=== PATIENT | female | born 1965 | race Caucasian/White ===

== ENCOUNTER 2018-09-18 16:27 | Inpatient (IN) | payer MEDICAID ==
[~2018-09-18] VITALS: Ht 165.1 cm; Wt 127.3 kg
[~2018-09-18 16:27] MED LIST: AZIT-63 PO; PRED20TA PO
[2018-09-18] MEDS ORDERED: ipratropium/albuterol 3ml nebule NEB ONE (16:45)
[2018-09-18] MEDS ORDERED: methylPREDNISolone sod succ 125mg/2ml vial IV ONE (16:45)
[2018-09-18] MEDS ORDERED: FURO40TA4 PO (17:05)
[2018-09-18] MEDS ORDERED: racepinephrine 11.25mg/0.5ml nebule ONE (17:05)
[2018-09-18] MEDS ORDERED: LEVO25TA2 PO (17:05)
[2018-09-18] MEDS ORDERED: AZIT-63 PO (17:05)
[2018-09-18] MEDS ORDERED: PRED20TA PO (17:05)
[2018-09-18] MEDS ORDERED: racepinephrine 11.25mg/0.5ml nebule IH ONE (17:05)
[2018-09-18 17:10] LABS: BASOPHILS # (AUTO) 0.1 X10'3 (0-0.2); BASOPHILS % (AUTO) 0.9 % (0-1); EOSINOPHILS % (AUTO) 0 % (0-6); HEMATOCRIT 44.5 % (35.0-45.0); HEMOGLOBIN 14.8 g/dl (12.0-16.0); LYMPHOCYTES # (AUTO) 0.9 X10'3 (1.1-4.8); LYMPHOCYTES % (AUTO) 8.8 % (21-51); MEAN CORPUSCULAR HEMOGLOBIN 29.5 PG (27.0-31.0); MEAN CORPUSCULAR HGB CONC 33.1 g/dL (33.0-36.5); MEAN PLATELET VOLUME 8.8 FL (7.4-10.4); MONOCYTES # (AUTO) 0.4 X10'3 (0-0.9); MONOCYTES % (AUTO) 3.5 % (2-12); NEUTROPHILS # (AUTO) 9.1 X10'3 (1.8-7.7); NEUTROPHILS % (AUTO) 86.8 % (42-75); PLATELET COUNT 320 X10'3 (140-440); RED BLOOD COUNT 5.01 X10'6 (4.20-5.60); RED CELL DISTRIBUTION WIDTH 14.6 % (11.5-14.5); WHITE BLOOD COUNT 10.5 X10'3 (4.5-11.0)
[2018-09-18 17:18] LABS: PARTIAL THROMBOPLASTIN TIME 28 SECONDS (22-32)
[2018-09-18 17:20] LABS: ALANINE AMINOTRANSFERASE 35 U/L (12-78); ALBUMIN 3.2 G/DL (3.4-5.0); ALBUMIN/GLOBULIN RATIO 0.8 (1.1-1.5); ALKALINE PHOSPHATASE 105 IU/L (46-116); ANION GAP 8 (8-16); ASPARTATE AMINO TRANSFERASE 18 U/L (10-37); BILIRUBIN,TOTAL 0.3 MG/DL (0.1-1.0); BLOOD UREA NITROGEN 13 MG/DL (7-18); BUN/CREATININE RATIO 11.9 (6.6-38.0); CALCIUM 8.9 MG/DL (8.5-10.1); CHLORIDE 107 MMOL/L (99-107); CREATININE 1.09 MG/DL (0.40-0.90); GLUCOSE 229 MG/DL (70-104); POTASSIUM 3.9 MMOL/L (3.5-5.1); SODIUM 141 MMOL/L (135-145); TOTAL CARBON DIOXIDE 25.7 MMOL/L (24-32); eGFR 52 ML/MIN
[2018-09-18] MEDS ORDERED: fentaNYL/PF 50MCG/1 ML 2ML syringe IV ONE (17:55)
[2018-09-18] MEDS ORDERED: azithromycin/NS 500mg/250ml 250 ML IV ONE (17:55)
[2018-09-18] MEDS ORDERED: potassium Cl 40MEQ/NS 500ml 500 ML IV PRN ×2 (18:00)
[2018-09-18] MEDS ORDERED: HYDROcodone/acetaminophen 10/325mg tab PO PRN (18:00)
[2018-09-18] MEDS ORDERED: acetaminophen 325mg tablet PO PRN ×2 (18:00)
[2018-09-18] MEDS ORDERED: potassium Cl 20 mEq SR tablet PO PRN ×2 (18:00)
[2018-09-18] MEDS ORDERED: ipratropium/albuterol 3ml nebule NEB PRN (18:00)
[2018-09-18] MEDS ORDERED: mag hydrox/Alum hydrox/simeth 30ml oral suspension PO PRN (18:00)
[2018-09-18] MEDS ORDERED: ondansetron/PF 4mg/2ml inj IV PRN (18:00)
[2018-09-18] MEDS ORDERED: HYDROcodone/acetaminophen 5mg/325mg tablet PO PRN (18:00)
[2018-09-18] MEDS ORDERED: magnesium hydroxide 30ml (MOM) UD suspension PO PRN (18:00)
[2018-09-18] MEDS ORDERED: dextrose 50%-water 50ml dispensing syringe IV PRN ×2 (18:40)
[2018-09-18] MEDS ORDERED: dextrose ORAL solution 15 GM/59 ML bottle PO PRN ×2 (18:40)
[2018-09-18] MEDS ORDERED: glucagon, human recombinant 1mg kit SUBCUT PRN (18:40)
[2018-09-18] MEDS ORDERED: insulin Lispro (HumaLOG) vial - multi-dose SQ SCH (18:40)
[2018-09-18] MEDS ORDERED: MESSAGE TO PHARMACY PO ONE (18:40)
[2018-09-18 20:00] VITALS: BP 117/78
[2018-09-18] MEDS ORDERED: insulin glargine (Lantus) pen - multi-dose SQ SCH (21:00)
--- NOTE | 2018-09-18 21:30 | NUR ---
PT JUST EXPRESSED TO ME SHE WANTS TO GO HOME NOW, AFTER JUST BEING ADMITTED. I DISCUSSED THIS WITH HER EXPLAINING THAT SHE CAN'T COME TO THE ER, BE ADMITTED AND THEN DECIDE SHE DOESN'T WANT TO STAY. Addendum: 09/18/18 at 2222 by Neville Gray RN Amended: Links added.
--- NOTE | 2018-09-18 22:21 | NUR ---
PT DISCHARGED WITH ALL HER BELONGINGS VIA W/C TO HER TRUCK. SHE STATED TO ME SHE HAS QXYGEN AT HOME. Addendum: 09/18/18 at 2222 by Neville Gray RN Amended: Links added.
[2018-09-19] MEDS ORDERED: methylPREDNISolone sod succ 125mg/2ml vial IV SCH
[2018-09-19] MEDS ORDERED: azithromycin/NS 500mg/250ml 250 ML IV SCH (08:00)
[2018-09-19] MEDS ORDERED: enoxaparin 40mg/0.4ml syringe SUBCUT SCH (08:00)
[2018-09-19] MEDS ORDERED: K and/or MAG REPLACEMENT MC SCH (08:00)
== END 2018-09-18 23:35 | disposition left against medical advice (07) | DRG 140 ==
LOC: ER 16:27 → ED HOLD 17:56 → EDBEDREQSVC 18:12 → EDBEDREQ 19:42 → SUR 3N 19:58
PROVIDERS: ADMIT Internal Medicine; ATTEND Internal Medicine
DX: J44.0 Chronic obstructive pulmonary disease with (acute) lower respiratory infection (principal); E11.40 Type 2 diabetes mellitus with diabetic neuropathy, unspecified; J20.9 Acute bronchitis, unspecified; J44.1 Chronic obstructive pulmonary disease with (acute) exacerbation; E66.01 Morbid (severe) obesity due to excess calories; F12.90 Cannabis use, unspecified, uncomplicated; F43.10 Post-traumatic stress disorder, unspecified; Z53.21 Procedure and treatment not carried out due to patient leaving prior to being seen by health care provider; G47.30 Sleep apnea, unspecified; Z88.0 Allergy status to penicillin; Z88.8 Allergy status to other drugs, medicaments and biological substances; Z68.42 Body mass index [BMI] 45.0-49.9, adult; Z87.891 Personal history of nicotine dependence; Z90.710 Acquired absence of both cervix and uterus; Z98.51 Tubal ligation status; Z79.899 Other long term (current) drug therapy; Z79.890 Hormone replacement therapy
CPT/HCPCS: 36415; 71045; 80053; 83036; 83605; 83880; 84484; 85025; 85610; 85730; 87040; 94640; 94760; 96374; 99285; G0378; J0456; J1815; J2930; J3010

== ENCOUNTER 2018-09-25 15:00 | Inpatient (IN) | payer MEDICAID ==
[~2018-09-25] VITALS: Ht 165.1 cm; Wt 116.5 kg
[~2018-09-25 15:00] MED LIST changes: +FURO40TA4 PO; +LEVO25TA2 PO
[2018-09-25] MEDS ORDERED: hydrOXYzine 25 MG tablet PO PRN (16:15)
[2018-09-25] MEDS ORDERED: loperamide 2mg capsule PO PRN (16:15)
[2018-09-25] MEDS ORDERED: mag hydrox/Alum hydrox/simeth 30ml oral suspension PO PRN (16:15)
[2018-09-25] MEDS ORDERED: acetaminophen 325mg tablet PO PRN (16:15)
[2018-09-25] MEDS ORDERED: tuberculin, purif. prot. deriv. 5 units/0.1ml ID ONE (16:15)
[2018-09-25] MEDS ORDERED: magnesium hydroxide 30ml (MOM) UD suspension PO PRN (16:15)
[2018-09-25] MEDS ORDERED: ALBU18HF2 INH (16:30)
[2018-09-25] MEDS ORDERED: POTA20PA40 PO (16:30)
[2018-09-25] MEDS ORDERED: TIOT18CA3 INH (16:30)
[2018-09-25] MEDS ORDERED: CLON-528 PO (16:30)
[2018-09-25] MEDS ORDERED: METF-436 PO (16:30)
--- NOTE | 2018-09-25 16:55 | NUR ---
Admission note: Pt accepted from [facility] by Raymon Handy for Dr Goldman for depression. Pt arrives at 1545 on the unit [facility]. Pt has 5150 written for DTS. Pt reported having suicidal thoughts. Pt states "I wouldn't have any questions about taking myself out. I probably wouldn't tell anybody, I would just do it." Pt reports hearing voices, having memory gaps and not having a purpose in life. Pt unable to participate in development of a viable safety plan. Pt oriented to the unit. Pts belongings inventoried. Pt showered and completed admission process.
[2018-09-25] MEDS ORDERED: pneumococcal 23-VAL P-sac vacc 25 mcg/0.5ml vial IMVAC ONE (17:00)
[2018-09-25] MEDS ORDERED: albuterol 2.5 MG/3 ML nebule NEB PRN (19:25)
[2018-09-25] MEDS: ipratropium 0.5 MG/2.5ML nebule IH SCH (19:57)
[2018-09-25 20:00] VITALS: BP 152/79
[2018-09-25] MEDS: furosemide 40mg tablet PO SCH (21:30)
[2018-09-25] MEDS: clonazePAM 0.5mg tablet PO PRN (21:30)
[2018-09-25] MEDS: potassium Cl 20 mEq SR tablet PO SCH (21:30)
[2018-09-25] MEDS: metFORMIN 500mg tablet PO SCH (21:31)
[2018-09-26] MEDS: ipratropium 0.5 MG/2.5ML nebule IH SCH ×4 (02:16→23:14)
--- NOTE | 2018-09-26 04:03 | NUR ---
Nursing Progress Note: Legal hold: 5150 Client on involuntary status for DTS. Report received from nurse with use of TIMOTEO Montoya RN. Why are they here: The patient self-presented to the ER with c/o SOB. During this time, she also endorsed suicidal and homicidal thoughts. "I would not have any problem taking myself out. I would not talk about it, I would just do it like my brother did." Utox was positive for meth and THC. She reports hearing voices in her head for her "entire life." She is homeless and sttaes that she "caught the love of my life in bed with someone else." Assessment What has happened this shift: The patient was laying in bed sleeping. She easily wakened for 1:1. She states that she recently came from [email or web address]. She reports that she became suicidal after becoming homeless. She feels helpless, hopeless, and worthless. "I can't think, can't focus." The patient states that she has no support from anybody but her daughter, "but she has her own problems." The patient c/o cough and order received for cough syrup, but she was asleep, and never woke for it. She has slept all night. S/I, H/I: Passive SI. A/VH: Denies Sleep: Has slept all night ADL's:Independent Group attendance: New admit Were meds taken: Yes Any med S/E none noted or reported Mental Status Exam Appearance: Disheveled, hair cut off short. Eye contact: Poor Behavior: Laid in bed sleeping all night. Speech: Clear, normal rate/rhythm. Mood: Depressed Affect: constricted Thought process: Linear Thought Content: Not known yet. Cognition: A/O x4 Insight: Poor Judgment: Poor Interventions PRN's used: Breathing tx by respiratory. Therapeutic interventions: Q15 min safety checks, 1:1 assessment, Active listening. Restraints/seclusion/emergency medication: none Justification of Continued Inpatient Treatment: The patient is home, suicidal, and has no ability to plan for safety, housing, or food.
[2018-09-26 07:25] VITALS: BP 138/89
[2018-09-26] MEDS: metFORMIN 500mg tablet PO SCH ×2 (07:44→20:28)
[2018-09-26] MEDS: levoTHYROXINE 25mcg tablet PO SCH (07:44)
[2018-09-26] MEDS: furosemide 40mg tablet PO SCH ×2 (07:45→20:30)
[2018-09-26] MEDS: potassium Cl 20 mEq SR tablet PO SCH ×2 (07:45→20:27)
[2018-09-26 08:05] LABS: CHOL/HDL RATIO 3.9 (0.00-4.99); CHOLESTEROL 208 MG/DL (0-200); HDL CHOLESTEROL 54 MG/DL (35-60); LDL CHOLESTEROL 130 MG/DL (50-100); TRIGLYCERIDES 143 MG/DL (20-135)
[2018-09-26 08:06] LABS: HEMOGLOBIN A1C 6.9 % (4.5-6.2)
[2018-09-26] MEDS: guaiFENesin/DM 10ml UD oral syrup PO PRN (10:54)
--- NOTE | 2018-09-26 14:50 | NUR ---
Nursing Progress Note: Legal hold: 5150 Client on involuntary status for DTS. Report received from nurse with use of SBAR: Tiffanie BANKS. Why are they here: The patient self-presented to the ER with c/o SOB. During this time, she also endorsed suicidal and homicidal thoughts. "I would not have any problem taking myself out. I would not talk about it, I would just do it like my brother did." Utox was positive for meth and THC. She reports hearing voices in her head for her "entire life." She is homeless and sttaes that she "caught the love of my life in bed with someone else." Assessment What has happened this shift: Patient sleeping at shift change. Pt awakened easily and and took her medications and BGM. Patient exhausted and with prompting got up for breakfast, has been depressed and sleeping. Reports that she is having A/H that are telling her that she is worthless, and tell her to kill herself. Patient states no plan. Patients S/O was caught cheating on her after 13 years. Pt. states that she feels worthless, hopeless, helpless. Lungs with bilateral wheezes. Pt. has cough and was given cough medicine. S/I, H/I: Pt. reports that she wants to . A/VH: A/H all the time, life long. Sleep: 9.25 hrs. ADL's:Independent Group attendance: None. Were meds taken: Yes Any med S/E none noted or reported Mental Status Exam Appearance: Obese woman with short hair wearing green hospital scrubs. Eye contact: Poor Behavior: Exhaustion, sleeping. Speech: Soft, clear, normal rate/rhythm. Mood: Depressed Affect: constricted Thought process: Linear Thought Content: Wanting to . Family disruption. Cognition: A/O x4 Insight: Poor Judgment: Poor Interventions PRN's used: Breathing tx by respiratory, guanfacine cough syrup. Therapeutic interventions: 1:1 to assess severity of symptoms, therapeutic commication and established rapport, Medication education, administration and monitoring. BGM. Q15 min safety checks. Restraints/seclusion/emergency medication: none Justification of Continued Inpatient Treatment: Patient needs interruption of crisis, medication stabilization. Pt. is high risk for rehospitalization if released before stable.
[2018-09-26 20:10] VITALS: BP 124/71
[2018-09-26] MEDS: acetaminophen 325mg tablet PO PRN (20:29)
[2018-09-26] MEDS: clonazePAM 0.5mg tablet PO PRN (20:30)
--- NOTE | 2018-09-26 23:30 | NUR ---
Nursing Progress Note: Legal hold: 5150 Client on involuntary status for DTS. Report received from nurse with use of TIMOTEO Montoya RN. Why are they here: The patient self-presented to the ER with c/o SOB. During this time, she also endorsed suicidal and homicidal thoughts. "I would not have any problem taking myself out. I would not talk about it, I would just do it like my brother did." Utox was positive for meth and THC. She reports hearing voices in her head for her "entire life." She is homeless and states that she "caught the love of my life in bed with someone else." Assessment What has happened this shift: At shift change the patient was seen in the group room eating dinner. She went to her room after and lay down. her room was later entered for 1:1 as she ate a snack. the patient reports that she is very depressed and is hearing voices tell her, "you're no good, why don't you just kill yourself." She gets tearful as she says this. The patient reports that she talked to her friend today, "she is my only emotional support person. At least someone knows where I am now." The patient continues to report extreme fatigue, and says that due to her sleep apnea she does not sleep well or feel rested when she wakes. She says that she needs her CPAP from home. The patient's lungs continue to be wheezy, but she is accepting breathing tx. She has been sleeping since HS med pass. S/I, H/I: Passive SI. A/VH: Denies Sleep: Has been sleeping since HS med pass. ADL's:Independent Group attendance: No groups tonight. Were meds taken: Yes Any med S/E none noted or reported Mental Status Exam Appearance: Disheveled, fatigued, obese, hair cut off short. Eye contact: Poor Behavior: Laid in bed sleeping all night. Speech: Clear, normal rate/rhythm. Mood: Depressed, labile. Affect: constricted, depressed, labile Thought process: Linear Thought Content: Preoccupied with voices telling her to kill herself. Cognition: A/O x4 Insight: Poor Judgment: Poor Interventions PRN's used: Breathing tx by respiratory, Clonazepam for anxiety. Therapeutic interventions: Q15 min safety checks, 1:1 assessment, Active listening, positive feedback, provide safe environment. Restraints/seclusion/emergency medication: none Justification of Continued Inpatient Treatment: The patient is home, suicidal, and has no ability to plan for safety, housing, or food.
[2018-09-27] MEDS: ipratropium 0.5 MG/2.5ML nebule IH SCH ×3 (02:33→15:00)
[2018-09-27] MEDS: metFORMIN 500mg tablet PO SCH ×2 (07:30→20:00)
[2018-09-27] MEDS: potassium Cl 20 mEq SR tablet PO SCH ×2 (07:30→20:00)
[2018-09-27] MEDS: levoTHYROXINE 25mcg tablet PO SCH (07:31)
[2018-09-27] MEDS: furosemide 40mg tablet PO SCH ×2 (07:31→20:00)
[2018-09-27] MEDS ORDERED: duloxetine 30mg CAPSULE.DR PO SCH (08:00)
[2018-09-27 08:14] VITALS: BP 117/93
[2018-09-27] MEDS: nystatin 500,000 unit/5ML UD oral suspension PO SCH ×2 (08:59→21:30)
[2018-09-27] MEDS ORDERED: ondansetron/PF 4mg/2ml inj IM ONE ×2 (11:45→23:10)
--- NOTE | 2018-09-27 14:24 | NUR ---
Nursing Progress Note: Legal hold: 5150 Client on involuntary status for DTS. Report received from nurse with use of SBAR: Opal BANKS. Why are they here: The patient self-presented to the ER with c/o SOB. During this time, she also endorsed suicidal and homicidal thoughts. "I would not have any problem taking myself out. I would not talk about it, I would just do it like my brother did." Utox was positive for meth and THC. She reports hearing voices in her head for her "entire life." She is homeless and sttaes that she "caught the love of my life in bed with someone else." Assessment What has happened this shift: Patient lying in bed at the start of shift. At medication pass patient is crying softly. Patient refused breakfast. At 11:40 patient started complaining of n/v. Patient did have dry heaves for a long time, was groaning and rocking back and forth. Zofran 4 mg given IM. Patient started feeling better almost instantly, patient ate saltine and was able to go back to bed. Educated patient to eat breakfast, even if it is only a small portion, patient agreed. Patient's accuchecks were DC'd, stable blood glucose. S/I, H/I: Pt is suicidal without plan. A/VH: A/H all the time, life long. Sleep: 10 hrs. NOC. Slept most of the day. ADL's:Independent Group attendance: None. Were meds taken: Compliant. Any med S/E: none noted or reported Mental Status Exam Appearance: Freshly showered woman with short hair wearing green hospital scrubs. Eye contact: Poor Behavior: Exhaustion, sleeping, crying. Speech: Soft, clear, normal rate/rhythm. Mood: Depressed, distraught. Affect: Constricted. Thought process: Linear Thought Content: Wanting to . Family disruption. Cognition: A/O x4 Insight: Poor Judgment: Poor Interventions PRN's used: Breathing tx by respiratory, Zofran Therapeutic interventions: 1:1 to assess severity of symptoms, therapeutic communication and to maintain rapport, Medication education, administration and monitoring. BGM. Q15 min safety checks. Restraints/seclusion/emergency medication: none Justification of Continued Inpatient Treatment: Patient needs interruption of crisis, medication stabilization. Pt. is high risk for rehospitalization if released before stability has been achieved.
[2018-09-27] MEDS: predniSONE 20 mg tablet PO SCH (20:15)
[2018-09-27] MEDS ORDERED: dextrose ORAL solution 15 GM/59 ML bottle PO PRN ×2 (20:25)
[2018-09-27] MEDS ORDERED: MESSAGE TO PHARMACY PO ONE (20:25)
[2018-09-27] MEDS ORDERED: dextrose 50%-water 50ml dispensing syringe IV PRN ×2 (20:25)
[2018-09-27] MEDS ORDERED: glucagon, human recombinant 1mg kit SUBCUT PRN (20:25)
[2018-09-27] MEDS: proCHLORperazine 10mg tablet PO PRN (20:34)
[2018-09-27] MEDS: proCHLORperazine 25mg suppository RC PRN (20:43)
[2018-09-27 20:45] VITALS: BP 119/77
[2018-09-27] MEDS: insulin glargine (Lantus) pen - multi-dose SQ SCH (21:00)
[2018-09-27 21:30] LABS: ABG BASE EXCESS 4.1 mmol/L (-2.0-3.0); ABG HCO3 27.6 mmol/L (22.0-26.0); ABG OXYGEN SATURATION 95.3 % (95-98); ABG PCO2 (T) 37.4 mmHg (32.0-45.0); ABG PH (T) 7.485 (7.350-7.450); FCOHb 0.2 % (0.5-1.5); FMetHb 0.2 % (0.3-1.12); FO2Hb 94.9 % (94-100); PATIENT TEMPERATURE 36.7; TOTAL HEMOGLOBIN 16.9 G/dl (12.0-16.0)
[2018-09-27] MEDS ORDERED: ipratropium/albuterol 3ml nebule ONE (21:35)
[2018-09-27] MEDS: ipratropium/albuterol 3ml nebule NEB SCH ×2 (21:36→22:26)
[2018-09-27] MEDS: famotidine 20mg tablet PO SCH (21:56)
[2018-09-27 23:43] LABS: BASOPHILS # (AUTO) 0.1 X10'3 (0-0.2); BASOPHILS % (AUTO) 0.6 % (0-1); EOSINOPHILS # (AUTO) 0.2 X10'3 (0-0.9); HEMATOCRIT 49.7 % (35.0-45.0); HEMOGLOBIN 16.8 g/dl (12.0-16.0); LYMPHOCYTES # (AUTO) 3.6 X10'3 (1.1-4.8); LYMPHOCYTES % (AUTO) 21.5 % (21-51); MEAN CORPUSCULAR HEMOGLOBIN 30.1 PG (27.0-31.0); MEAN CORPUSCULAR HGB CONC 33.8 g/dL (33.0-36.5); MEAN CORPUSCULAR VOLUME 89.2 FL (78-98); MONOCYTES # (AUTO) 1.3 X10'3 (0-0.9); MONOCYTES % (AUTO) 7.4 % (2-12); NEUTROPHILS # (AUTO) 11.8 X10'3 (1.8-7.7); NEUTROPHILS % (AUTO) 69.5 % (42-75); PLATELET COUNT 347 X10'3 (140-440); RED BLOOD COUNT 5.58 X10'6 (4.20-5.60); RED CELL DISTRIBUTION WIDTH 15.4 % (11.5-14.5)
[2018-09-27 23:54] LABS: ALANINE AMINOTRANSFERASE 50 U/L (12-78); ALBUMIN 3.5 G/DL (3.4-5.0); ALBUMIN/GLOBULIN RATIO 0.9 (1.1-1.5); ALKALINE PHOSPHATASE 110 IU/L (46-116); ANION GAP 9 (8-16); ASPARTATE AMINO TRANSFERASE 19 U/L (10-37); BILIRUBIN,TOTAL 0.5 MG/DL (0.1-1.0); BLOOD UREA NITROGEN 37 MG/DL (7-18); BUN/CREATININE RATIO 17.9 (6.6-38.0); CALCIUM 9.5 MG/DL (8.5-10.1); CHLORIDE 96 MMOL/L (99-107); CREATININE 2.07 MG/DL (0.40-0.90); GLUCOSE 163 MG/DL (70-104); POTASSIUM 4.3 MMOL/L (3.5-5.1); SODIUM 130 MMOL/L (135-145); TOTAL CARBON DIOXIDE 25.4 MMOL/L (24-32); TOTAL PROTEIN 7.3 G/DL (6.4-8.2); eGFR 25 ML/MIN
[2018-09-28] MEDS: normal saline 1000ml 1,000 ML IV SCH ×2 (00:45→04:15)
[2018-09-28] MEDS ORDERED: ondansetron/PF 4mg/2ml inj IV ONE (01:35)
[2018-09-28] MEDS ORDERED: metoclopramide 5 mg/ml inj IV ONE (04:10)
--- NOTE | 2018-09-28 05:07 | NUR ---
Nursing Progress Note: Legal hold: 5150 Client on involuntary status for DTS. Report received from nurse with use of TIMOTEO Montoya RN. Why are they here: The patient self-presented to the ER with c/o SOB. During this time, she also endorsed suicidal and homicidal thoughts. "I would not have any problem taking myself out. I would not talk about it, I would just do it like my brother did." Utox was positive for meth and THC. She reports hearing voices in her head for her "entire life." She is homeless and states that she "caught the love of my life in bed with someone else." Assessment What has happened this shift: At shift change pt was actively vomiting. Dr. Connolly was called, he came to see pt. scheduled DuoNeb-every 4 hours while awake, prednisone 60 mg daily budesonide nebs twice a day.See 's note for more detail. Prednisone along with other HS scheduled meds were not administered due to pt continually vomiting. Compazine 10mg tab given at 2033, pt vomited this up within 1 minute of swallowing. Pt then given a compazine 10 mg suppository at 2042 which pt reported provided a short period of relief. soon after pt began vomiting again, crying, and could not hold her bladder. Zofran 4mg IM given at 2324. Pt still continued to vomit, Dr. Connolyl was called again, he ordered 1,000 ML NS @250ML/HR which was initiated. IV placed in R hand 20 gauge. ABGs drawn, labs drawn. Pt still continued to vomit/dry heave. Pt given IV zofran @0212. Pt still continued to dry heave/vomit/cry. IV reglan given @0416. KUB ordered. Pt dry heaved a few times after receiving IV reglan. Cold cloths given to pt to place on her forehead, head of bed elevated. HS blood sugar : 150 blood sugar rechecked at 0353 : 183 S/I, H/I: Pt could not focus on questions, no suicidal/homicidal statements made A/VH: Pt could not focus on questions, no internal stimuli observed Sleep: See sleep assessment notation ADL's: Independent Group attendance: No groups tonight. Were meds taken: Pt could not take scheduled HS medications due to active emesis Any med S/E : continual emesis/ dry heaving Mental Status Exam Appearance: pt showered x3 this shift upon her request after wetting the bed. Eye contact: Poor Behavior: laid in bed or sat up w/ active fits of emesis/ dry heaving Speech: Clear, distressed Mood:distressed Affect: hopeless Thought process: Linear Thought Content: "please make it stop" "I just want to stop throwing up" "I am so sick" Cognition: A/O x4 Insight: Poor Judgment: Poor Interventions PRN's used: see eMAR Therapeutic interventions: Q15 min safety checks, 1:1 assessment, IV therapy, Active listening, positive feedback, provide safe environment. Restraints/seclusion/emergency medication: none Justification of Continued Inpatient Treatment: The patient is home, suicidal, and has no ability to plan for safety, housing, or food.
[2018-09-28] MEDS: ipratropium/albuterol 3ml nebule NEB SCH ×5 (07:00→23:00)
[2018-09-28] MEDS: levoTHYROXINE 25mcg tablet PO SCH (07:00)
[2018-09-28] MEDS ORDERED: LORazepam 2 mg/ml vial IM ONE (07:50)
[2018-09-28 08:00] VITALS: BP 140/77
[2018-09-28] MEDS ORDERED: normal saline 1000ml 1,000 ML IV ONE (08:00)
[2018-09-28] MEDS: predniSONE 20 mg tablet PO SCH (08:00)
[2018-09-28] MEDS: metFORMIN 500mg tablet PO SCH ×2 (08:00→19:53)
[2018-09-28] MEDS: furosemide 40mg tablet PO SCH ×2 (08:00→19:53)
[2018-09-28] MEDS: nystatin 500,000 unit/5ML UD oral suspension PO SCH ×2 (08:00→19:58)
[2018-09-28] MEDS: famotidine 20mg tablet PO SCH ×2 (08:00→19:54)
[2018-09-28] MEDS: duloxetine 30mg CAPSULE.DR PO SCH (08:00)
[2018-09-28] MEDS: potassium Cl 20 mEq SR tablet PO SCH ×2 (08:00→19:53)
[2018-09-28] MEDS: budesonide 0.5mg/2ml UD nebule IH SCH ×2 (08:00→19:58)
[2018-09-28 08:10] LABS: BASOPHILS # (AUTO) 0.1 X10'3 (0-0.2); BASOPHILS % (AUTO) 0.7 % (0-1); EOSINOPHILS # (AUTO) 0.1 X10'3 (0-0.9); EOSINOPHILS % (AUTO) 0.3 % (0-6); HEMATOCRIT 46.9 % (35.0-45.0); HEMOGLOBIN 15.5 g/dl (12.0-16.0); LYMPHOCYTES # (AUTO) 1.7 X10'3 (1.1-4.8); LYMPHOCYTES % (AUTO) 10.8 % (21-51); MEAN CORPUSCULAR HEMOGLOBIN 29.5 PG (27.0-31.0); MEAN CORPUSCULAR HGB CONC 33.1 g/dL (33.0-36.5); MEAN CORPUSCULAR VOLUME 88.9 FL (78-98); MEAN PLATELET VOLUME 9.4 FL (7.4-10.4); MONOCYTES # (AUTO) 0.6 X10'3 (0-0.9); MONOCYTES % (AUTO) 4.1 % (2-12); NEUTROPHILS % (AUTO) 84.1 % (42-75); PLATELET COUNT 304 X10'3 (140-440); RED BLOOD COUNT 5.27 X10'6 (4.20-5.60); WHITE BLOOD COUNT 15.5 X10'3 (4.5-11.0)
[2018-09-28 08:18] LABS: ALANINE AMINOTRANSFERASE 46 U/L (12-78); ALBUMIN 3.4 G/DL (3.4-5.0); ALBUMIN/GLOBULIN RATIO 0.9 (1.1-1.5); ALKALINE PHOSPHATASE 104 IU/L (46-116); ANION GAP 6 (8-16); ASPARTATE AMINO TRANSFERASE 16 U/L (10-37); BILIRUBIN,TOTAL 0.6 MG/DL (0.1-1.0); BLOOD UREA NITROGEN 32 MG/DL (7-18); BUN/CREATININE RATIO 18.6 (6.6-38.0); CALCIUM 9.2 MG/DL (8.5-10.1); CHLORIDE 98 MMOL/L (99-107); CREATININE 1.72 MG/DL (0.40-0.90); GLUCOSE 183 MG/DL (70-104); POTASSIUM 4.3 MMOL/L (3.5-5.1); SODIUM 132 MMOL/L (135-145); TOTAL CARBON DIOXIDE 27.9 MMOL/L (24-32); eGFR 31 ML/MIN
--- NOTE | 2018-09-28 18:08 | NUR ---
Nursing Progress Note: Legal hold: 5150 Client on involuntary status for DTS. Report received from nurse with use of SBAR: Opal BANKS. Why are they here: The patient self-presented to the ER with c/o SOB. During this time, she also endorsed suicidal and homicidal thoughts. "I would not have any problem taking myself out. I would not talk about it, I would just do it like my brother did." Utox was positive for meth and THC. She reports hearing voices in her head for her "entire life." She is homeless and sttaes that she "caught the love of my life in bed with someone else." Assessment What has happened this shift: Received Pt in bed with c/o nausea and vomiting. Pt vomited before AM med pass and continued to c/o nausea. AM meds not given due to nausea and vomitting. Dr Michael held cymbalta. Hospitalist ordered 1000 NS at 100/hr. Bag hung and continues to run. Pt requested and did shower in mid morning and returned to bed. IM ativan, 1mg given per Dr Michael. Received AM breathing Tx before lunch. After some turning and tossing, was able to sleep. AM BS was 186. BS at 1800 was 142. Awoke for dinner and states she feels much better with no nausea. S/I, H/I: Pt is suicidal without plan. A/VH: A/H all the time, life long. Sleep: 4 hrs in afternoon ADL's:Independent Group attendance: None. Were meds taken: No oral meds due to nausea and vomiting Any med S/E: none noted or reported Mental Status Exam Appearance: Freshly showered woman with short hair wearing green hospital scrubs. Eye contact: Poor Behavior: Exhaustion, sleeping, crying. Speech: Soft, clear, normal rate/rhythm. Mood: Depressed, distraught. Affect: Constricted. Thought process: Linear Thought Content: Wanting to . Family disruption. Cognition: A/O x4 Insight: Poor Judgment: Poor Interventions PRN's used: IM ativan Therapeutic interventions: 1:1 to assess severity of symptoms, therapeutic communication and to maintain rapport, Medication education, administration and monitoring. BGM. Q15 min safety checks. Restraints/seclusion/emergency medication: none Justification of Continued Inpatient Treatment: Patient needs interruption of crisis, medication stabilization. Pt. is high risk for rehospitalization if released before stability has been achieved.
[2018-09-28] MEDS: LORazepam 1 MG tablet PO PRN (19:52)
[2018-09-28] MEDS: guaiFENesin/DM 10ml UD oral syrup PO PRN (19:52)
[2018-09-28] MEDS: traZODone 50mg tablet PO PRN (19:53)
[2018-09-28] MEDS: acetaminophen 325mg tablet PO PRN (19:53)
[2018-09-28 20:00] VITALS: BP 132/82
[2018-09-28] MEDS: insulin glargine (Lantus) pen - multi-dose SQ SCH (21:00)
--- NOTE | 2018-09-28 22:19 | NUR ---
Nursing Progress Note Legal hold:5250 Client on voluntary/involuntary status for Gravely disabled and being a danger to herself Report received from nurse with use of TIMOTEO Ba RN Why are they here: The patient was admitted from [facility] ER after she went there complaining of suicidal thoughts to cut herself and prior to going to the ER she was contemplating jumping [place] [place] but she went to the ER instead because she has 3 grandchildren. Assessment What has happened this shift: The patient was in her bed a majority of the evening 2nd to feeling tired and ill. She initially was very sleepy. She had no nausea or vomiting this shift. She reported her mood was "a lot better" Her interactions with staff were friendly and she was appreciative of care. She stated that the cough she had was also improved but she continued to have occasional productive cough and prn cough syrup was given. She also reported her energy level was very low. The patient stated that she is having derogatory and command hallucinations telling her to kill herself. She also continues to have suicidal thoughts and when asked if she was having them any less frequently than on admit she replied, "It's hard to tell because I've been concentrating on getting well" Anxiety was moderate and she did request prn Ativan. The patient accidently pulled out her IV S/I, H/I: Suicidal thoughts continue A/VH: AH telling her to kill herself and derogatory statements. Sleep: ADL's: Independent Group attendance: no PM group Were meds taken: The patient is medication compliant Any med S/E The patient denies medications side effects Mental Status Exam Appearance: Short cropped hair. She appears older than her stated age. Dressed in day [facility] scrub gown Eye contact: Good Behavior: Pleasant cooperative Speech: Normal rate and volume Mood: Depressed but reports improved tonight. Affect: WNL Thought process:Logical linear Thought Content: difficult to fully assess 2nd to still feeling ill Cognition: alert and oriented Insight: Impaired Judgment: Impaired Interventions PRN's used: Ativan, Trazodone, Tylenol, Cough Syrup Therapeutic interventions: One to one with the patient to assess for severity of depressive symptoms and self harm risk. Reviewed plan of care for the evening. HS and prn medications were reviewed with her. Assessed for severity of disordered thought processes. Restraints/seclusion/emergency medication: NO Justification of Continued Inpatient Treatment: The patient continues to endorse suicidal thoughts and she also reports command auditory hallucinations telling her to kill herself.
[2018-09-29] MEDS: ipratropium/albuterol 3ml nebule NEB SCH ×4 (07:00→20:02)
[2018-09-29] MEDS: levoTHYROXINE 25mcg tablet PO SCH ×2 (07:30→13:49)
[2018-09-29] MEDS: proCHLORperazine 10mg tablet PO PRN (07:30)
[2018-09-29 07:57] VITALS: BP 145/92
[2018-09-29] MEDS: budesonide 0.5mg/2ml UD nebule IH SCH ×2 (08:00→20:00)
[2018-09-29] MEDS: predniSONE 20 mg tablet PO SCH (08:30)
[2018-09-29] MEDS: potassium Cl 20 mEq SR tablet PO SCH ×3 (08:30→20:11)
[2018-09-29] MEDS: furosemide 40mg tablet PO SCH ×3 (08:30→21:09)
[2018-09-29] MEDS: duloxetine 30mg CAPSULE.DR PO SCH (08:30)
[2018-09-29] MEDS: famotidine 20mg tablet PO SCH ×3 (08:30→20:10)
[2018-09-29] MEDS: metFORMIN 500mg tablet PO SCH ×3 (08:30→20:10)
[2018-09-29] MEDS: nystatin 500,000 unit/5ML UD oral suspension PO SCH ×3 (08:30→20:10)
--- NOTE | 2018-09-29 09:20 | NUR ---
HYPERGLYCEMIC PROTOCOL Patients last 2 BS = 09/28 at 2030 184, 09/29 at 0710 168, initiate hyperglycemic protocol, however, patient is nauseated and unable to eat, nausea and vomiting all of yesterday. RN did not administer insulin.
[2018-09-29 13:10] VITALS: BP 161/102
[2018-09-29] MEDS: acetaminophen 325mg tablet PO PRN (13:25)
[2018-09-29 15:00] VITALS: BP 170/93
[2018-09-29] MEDS: LORazepam 1 MG tablet PO PRN ×2 (18:33→20:22)
--- NOTE | 2018-09-29 18:37 | NUR ---
Nursing Progress Note: Legal hold: 5150 Client on involuntary status for DTS. Report received from nurse with use of SBAR: Opal BANKS. Why are they here: The patient self-presented to the ER with c/o SOB. During this time, she also endorsed suicidal and homicidal thoughts. "I would not have any problem taking myself out. I would not talk about it, I would just do it like my brother did." Utox was positive for meth and THC. She reports hearing voices in her head for her "entire life." She is homeless and sttaes that she "caught the love of my life in bed with someone else." Assessment What has happened this shift: Patient is met in her room resting. She wakens and states that she is very nauseated. Seh takes a shower and then lays back down. PRN clompazine is administered as well as MOM for constipation and prune juice. Patient does not eat breakfast. Morning medicaitons not administered due to nausea. Patient c/o pain in her shoulder, Tylenol administered. She states that she still has not had a BM, prune juice provided. At lunch patient takes all AM meds except cymbalta and prednisone. She requests Ativan for anxiety, administered at 1300. She eats about half of her food to include broth and power pudding. After she lays down to rest. Patients last 2 BS = 09/28 at 2030 184, 09/29 at 0710 168, initiate hyperglycemic protocol, however, patient is nauseated and unable to eat, nausea and vomiting all of yesterday. RN did not administer insulin. 1257 BS = 202, 1746 BS = 144. S/I, H/I: denies A/VH: none reported Sleep: slept on and off throughout the day ADL's:Independent Group attendance: None. Were meds taken: yes Any med S/E: none noted or reported Mental Status Exam Appearance: appropriate Eye contact: direct Behavior: Exhaustion, sleeping, crying. Speech: Soft, clear, normal rate/rhythm. Mood: Depressed, not feeling well physically and mentally Affect: Constricted. Thought process: Linear Thought Content: focused on feeling better Cognition: A/O x4 Insight: Poor Judgment: Poor Interventions PRN's used: MOM, clompazine Therapeutic interventions: 1:1 to assess severity of symptoms, therapeutic communication to maintain rapport with positive feedback provided, medication education, BGM, and Q15 min safety checks. Restraints/seclusion/emergency medication: none Justification of Continued Inpatient Treatment: Continued therapeutic support and medicaiton management needed to provide stabalization, prevent decompensation, and decrease risk to patient and readmittance.She continues to be high risk for discharge at this point because of continuing suicide ideations and profound depressive and anxiety symptoms
[2018-09-29 20:00] VITALS: BP 157/88
[2018-09-29] MEDS: insulin glargine (Lantus) pen - multi-dose SQ SCH (20:15)
[2018-09-29] MEDS: traZODone 50mg tablet PO PRN (20:25)
--- NOTE | 2018-09-29 20:30 | NUR ---
Ativan administered early. CRN notified
--- NOTE | 2018-09-30 03:54 | NUR ---
Nursing Progress Note: Legal hold: 550 Client on involuntary status for DTS. Report received from DELGADO Park with use of SBAR Why are they here: The patient self-presented to the ER with c/o SOB. During this time, she also endorsed suicidal and homicidal thoughts. "I would not have any problem taking myself out. I would not talk about it, I would just do it like my brother did." Her tox screen was positive for meth and THC. She reports hearing voices in her head for her "entire life." She is homeless and states that she "caught the love of my life in bed with someone else." Assessment What has happened this shift: Patient was sleeping in bed at shift change. Received in report that pt was nauseous most of the day wasnt feeling well. Let patient sleep until it was time for HS meds and blood glucose check. Pt reported that her nausea had subsided and she did have a small, hard BM. Hypo bowel sounds in x4 were auscultated and no pain reported when palpating abdomen. Pt was extremely anxious, so Ativan was administered. Pts BS was 166. Pt requested something to eat and had some juice, including 2 boxes of prune juice,some cheese and crackers. Pt was able to keep this down without vomiting. Administered all medications with no SE noted. KUB results noted large amount of stool in colon. If clinical concern for bowel obstruction, CT of the abd and pelvis is recommended. This advertising copy writer was called into patients room around 2300 due to pt vomiting. This advertising copy writer offered pt Compazine , pt wanted to shower first to see if this helped her feel better. Shower helped and pt requested Atarax and went to sleep. Pt reported she hears intrusive voices all the time. When asked what they said, pt responded, "they tell me I am a piece of shit, to jump off a bridge." "If I could I would just do it, just like my brother did." S/I, H/I: SI Yes, I would jump off of a bridge; no HI reported or observed A/VH: AH - "I am a piece of shit," "go jump off a bridge, nobody will care" Sleep: See sleep assessment notation ADL's:Independent, pt showered this shift Group attendance: retail shift manager, no group Were meds taken: Medication compliant Any med S/E: None reported or observed Mental Status Exam Appearance: Short cropped hair, dishelved - pt not feeling well Eye contact: Direct Behavior: Fatigued, weak, not feeling well Speech: Soft, clear, normal rate/rhythm. Mood: Depressed, not feeling well physically and mentally Affect: Constricted. Thought process: Linear Thought Content: Focused on feeling better Cognition: A/O x4 Insight: Poor Judgment: Poor Interventions PRN's used: Ativan, Atarax, Tramadol Therapeutic interventions: 1:1 therapeutic assessment, active listening, medication education, administration and monitoring for effects, maintained Q15 min safety checks, therapeutic milieu and group therapy. 1:1 to assess severity of symptoms, therapeutic communication to maintain rapport with positive feedback provided, medication education, BGM, and Q15 min safety checks. Restraints/seclusion/emergency medication: N/A Justification of Continued Inpatient Treatment: Continued therapeutic support and medication management needed to provide stabilization, prevent decompensation, and decrease risk to patient and readmittance.She continues to be high risk for discharge at this point because of continuing suicide ideations and profound depressive and anxiety symptoms Addendum: 09/30/18 at 0357 by Mandy Abraham RN Legal Hold: [id number]
[2018-09-30] MEDS: insulin Lispro (HumaLOG) vial - multi-dose SQ SCH ×3 (07:20→17:47)
[2018-09-30 07:52] VITALS: BP 148/85
[2018-09-30] MEDS: proCHLORperazine 10mg tablet PO PRN (07:55)
[2018-09-30] MEDS: duloxetine 30mg CAPSULE.DR PO SCH (08:00)
[2018-09-30] MEDS: nystatin 500,000 unit/5ML UD oral suspension PO SCH ×2 (08:00→20:00)
[2018-09-30] MEDS: ipratropium/albuterol 3ml nebule NEB SCH ×5 (08:12→23:00)
[2018-09-30] MEDS: BUDESONIDE 0.25 MG/2 ML AMPUL.NEB IH SCH ×2 (08:20→21:12)
[2018-09-30] MEDS ORDERED: bisacodyl 10mg suppository rectal RC PRN (09:05)
[2018-09-30] MEDS ORDERED: magnesium citrate 296ml oral solution PO ONE ×2 (09:05→09:30)
[2018-09-30] MEDS ORDERED: docusate sod 100mg capsule PO PRN (09:05)
[2018-09-30] MEDS: LORazepam 1 MG tablet PO PRN ×2 (09:12→22:58)
[2018-09-30] MEDS: famotidine 20mg tablet PO SCH ×2 (09:13→21:22)
[2018-09-30] MEDS ORDERED: proCHLORperazine 10mg tablet PO ONE (13:05)
[2018-09-30] MEDS: levoTHYROXINE 25mcg tablet PO SCH (13:11)
[2018-09-30] MEDS: metFORMIN 500mg tablet PO SCH ×2 (13:11→21:23)
[2018-09-30 14:24] VITALS: BP 136/99
[2018-09-30] MEDS: furosemide 40mg tablet PO SCH ×2 (14:31→21:23)
[2018-09-30] MEDS: potassium Cl 20 mEq SR tablet PO SCH ×2 (14:31→21:23)
[2018-09-30] MEDS: predniSONE 20 mg tablet PO SCH (14:32)
--- NOTE | 2018-09-30 14:50 | NUR ---
Nursing Progress Note: Legal hold: 5250 Client on involuntary status for DTS. Report received from DELGADO Harmon with use of SBAR Why are they here: The patient self-presented to the ER with c/o SOB. During this time, she also endorsed suicidal and homicidal thoughts. "I would not have any problem taking myself out. I would not talk about it, I would just do it like my brother did." Her tox screen was positive for meth and THC. She reports hearing voices in her head for her "entire life." She is homeless and states that she "caught the love of my life in bed with someone else." Assessment What has happened this shift: Pt c/o nausea before breakfast, administered prn Compazine 10 mg at 0755, FSBG AC Bkfst was 164, did not administer Humalog as pt has been having N/V X 2 days. Held Nystatin and Cymbalta due to nausea. Pt has a productive cough with brown and green sputum. Pt rated depression at 11/10, and anxiety 8/10, denies SI/HI. Pt stated that she always hears voices, they say mean/derogatory things to her, "they make me feel like shattered glass," denied CAH. Pt c/o VH last night stated she was seeing blue and white circles with her face in them, pt states that VH is not usual for her. Pt stated, "I feel like I'm withdrawing, I never have before in my life." Asked pt what she thought she was withdrawing from, she replied, "meth." Explained that many of her symptoms were not typical to meth withdrawal and that meth withdrawal generally was not life threatening so long as adequate fluids are being taken in. Pt ate 100 % of breakfast, returned to bed after breakfast, c/o abdominal pain, began to cry. Bowel sounds present X 4, abdomen soft. Spoke with DONN Handy who ordered DSS 100 mg PO BID prn, Bisacodyl supp daily prn, and magnesium citrate X 1. Administered DSS 100 mg, Ativan 1 mg and pepcid at 0915, administered Bisacodyl supp MS at 0920. Magnesium citrate given at 1025, pt had 2 medium soft formed BMs and requested to shower. FSBG AC lunch was 197, held Humalog again. Pt declined to attend groups today as she was not feeling well, ordered broth and diet lemon-[place] soda for lunch. Was given a one time order for Compazine 10 mg administered at 1310. Pt is taking/tolerating fluids well. Returned after lunch and gave pt's Lasix, potassium, and prednisone, no episodes of vomiting this shift, continues to have intermittent nausea and general malaise and achiness. Pt has order for CBC and CMP tomorrow am. S/I, H/I: Pt denies A/VH: Pt states experiencing both AH & VH ,denies CAH Sleep: Slept 10 hours per noc shift report ADL's:Independent Group attendance: Declined to attend groups today due to not feeling well Were meds taken: held Cymbalta, Nystatin, and Humalog due to nausea Any med S/E: None reported or observed Mental Status Exam Appearance: Disheveled Eye contact: Good Behavior: isolating to room/self due to constipation, nausea, and general malaise Speech: Soft, clear, normal rate/rhythm. Mood: Depressed, anxious Affect: appears ill, not feeling well, just wants to lie in bed today and be left alone Thought process: Linear Thought Content: Fixated on somatic complaints, thinks she is withdrawing Cognition: A/O x4 Insight: Poor Judgment: Poor Interventions PRN's used: Ativan 1 mg, colace 100 mg, compazine 10 mg X 2, Bisacodyl supp, magnesium citrate; 1 bottle Therapeutic interventions: 1:1 assessment, therapeutic conversation, constipation management, medication administration/education/monitoring, Q 15 min safety checks.. Restraints/seclusion/emergency medication: N/A Justification of Continued Inpatient Treatment: Pt needs further crisis stabilization, she is physically ill so having difficulty tolerating psychiatric medication initiation at this time, pt continues to have severe depression and anxiety as well as intrusive derogatory AH and some VH (pt states not usual for her.) Pt is homeless, a safe discharge plan must be formulated once she is physically and psychologically stable.
[2018-09-30 19:42] VITALS: BP 153/81
[2018-09-30] MEDS: insulin glargine (Lantus) pen - multi-dose SQ SCH (21:00)
--- NOTE | 2018-09-30 23:29 | NUR ---
Pt started eating her snack before this telegraphic typewriter repairer could get her BG. Blood glucose was 240, this was after patient had 2 oranges and a small package of [employer] cookies. Addendum: 09/30/18 at 2331 by Mandy Abraham RN Amended: Links added.
--- NOTE | 2018-10-01 02:46 | NUR ---
Nursing Progress Note: Legal hold: 5250 Client on involuntary status for DTS. Report received from JOCELYN Guallpa with use of SBAR Why are they here: The patient self-presented to the ER with c/o SOB. During this time, she also endorsed suicidal and homicidal thoughts. "I would not have any problem taking myself out. I would not talk about it, I would just do it like my brother did." Her tox screen was positive for meth and THC. She reports hearing voices in her head for her "entire life." She is homeless and states that she "caught the love of my life in bed with someone else." Assessment What has happened this shift: Patient was sleeping in bed with no apparent distress observed. Pt reported her nausea had decreased and no episodes of vomiting. Pt was up for snack and tolerated it well. She ate 2 oranges and a small package of cookies before this nurse could obtain a blood glucose POC. Her BG was 240. Pt reported her anxiety a 10/10 and depression 9/10. She denies SI, but if she states if she decides to kill herself she will not tell anyone her plan. Pt had 3 loose to soft stools this shift and states she feels better. Pt denies VH, but continues to have AH, voices saying derogatory comments ("yo are no good"). Pt was in bed most of the shift, but did get up for snack and to shower. Ativan was administered for her anxiety. S/I, H/I: Pt deborah SI, but states if she has a plan no one will ever know A/VH: AH - Denies VH, AH- "you are no good" Sleep: See sleep assessment notation ADL's: Independent, pt showered this shift Group attendance: maintenance technician 3rd shift, no group Were meds taken: Pt is medication compliant Any med S/E: None reported or observed Mental Status Exam Appearance: Clean, disheveled Eye contact: Direct Behavior: Fatigued, hungry Speech: Soft, clear, normal rate/rhythm. Mood: Depressed Affect: Constricted Thought process: Linear Thought Content: Focused on feeling better Cognition: A/O x4 Insight: Poor Judgment: Poor Interventions PRN's used: Ativan Therapeutic interventions: 1:1 therapeutic assessment, active listening, medication education, administration and monitoring for effects, Q15 min safety checks, therapeutic milieu and group therapy. Restraints/seclusion/emergency medication: N/A Justification of Continued Inpatient Treatment: Continued therapeutic support and medication management needed to provide stabilization, prevent decompensation, and decrease risk to patient and readmittance. Pt continues to have severe depression and anxiety as well as intrusive derogatory AH. Pt is homeless, a safe discharge plan must be formulated once she is physically and psychologically stable.
[2018-10-01] MEDS: ipratropium/albuterol 3ml nebule NEB SCH ×5 (07:00→23:00)
[2018-10-01] MEDS: levoTHYROXINE 25mcg tablet PO SCH (07:12)
[2018-10-01] MEDS: potassium Cl 20 mEq SR tablet PO SCH ×2 (07:37→21:19)
[2018-10-01] MEDS: duloxetine 30mg CAPSULE.DR PO SCH (07:37)
[2018-10-01] MEDS: furosemide 40mg tablet PO SCH ×2 (07:37→21:19)
[2018-10-01] MEDS: famotidine 20mg tablet PO SCH ×2 (07:38→21:18)
[2018-10-01] MEDS: metFORMIN 500mg tablet PO SCH ×2 (07:38→21:18)
[2018-10-01 07:40] VITALS: BP 108/79
[2018-10-01] MEDS: predniSONE 20 mg tablet PO SCH (07:49)
[2018-10-01] MEDS: BUDESONIDE 0.25 MG/2 ML AMPUL.NEB IH SCH ×2 (08:00→19:47)
[2018-10-01] MEDS: LORazepam 1 MG tablet PO PRN ×2 (08:28→17:12)
[2018-10-01] MEDS: insulin Lispro (HumaLOG) vial - multi-dose SQ SCH ×3 (08:40→18:13)
[2018-10-01] MEDS: nystatin 500,000 unit/5ML UD oral suspension PO SCH ×2 (08:42→20:00)
[2018-10-01 09:02] LABS: ALANINE AMINOTRANSFERASE 44 U/L (12-78); ALBUMIN 3.6 G/DL (3.4-5.0); ALBUMIN/GLOBULIN RATIO 0.9 (1.1-1.5); ALKALINE PHOSPHATASE 109 IU/L (46-116); ANION GAP 11 (8-16); ASPARTATE AMINO TRANSFERASE 20 U/L (10-37); BILIRUBIN,TOTAL 0.7 MG/DL (0.1-1.0); BLOOD UREA NITROGEN 15 MG/DL (7-18); BUN/CREATININE RATIO 11.5 (6.6-38.0); CALCIUM 9.5 MG/DL (8.5-10.1); CHLORIDE 93 MMOL/L (99-107); CREATININE 1.31 MG/DL (0.40-0.90); GLUCOSE 187 MG/DL (70-104); POTASSIUM 3.3 MMOL/L (3.5-5.1); SODIUM 132 MMOL/L (135-145); TOTAL CARBON DIOXIDE 28.3 MMOL/L (24-32); TOTAL PROTEIN 7.7 G/DL (6.4-8.2); eGFR 42 ML/MIN
[2018-10-01] MEDS ORDERED: ibuprofen tablet 400 MG TABLET PO PRN (09:35)
--- NOTE | 2018-10-01 10:00 | NUR ---
Pt.'s WBC elevated at 15.3 which down slightly from 15.5 on 09/28. Hospitalist bandar and Dr. Eller notified and ordered repeat CBC tomorrow.
[2018-10-01 10:44] LABS: BASOPHILS # (AUTO) 0.1 X10'3 (0-0.2); BASOPHILS % (AUTO) 0.8 % (0-1); EOSINOPHILS % (AUTO) 0.2 % (0-6); HEMATOCRIT 46.8 % (35.0-45.0); HEMOGLOBIN 15.8 g/dl (12.0-16.0); LYMPHOCYTES # (AUTO) 1.2 X10'3 (1.1-4.8); MEAN CORPUSCULAR HEMOGLOBIN 29.9 PG (27.0-31.0); MEAN CORPUSCULAR HGB CONC 33.8 g/dL (33.0-36.5); MEAN CORPUSCULAR VOLUME 88.3 FL (78-98); MONOCYTES # (AUTO) 0.9 X10'3 (0-0.9); MONOCYTES % (AUTO) 5.8 % (2-12); NEUTROPHILS % (AUTO) 85.2 % (42-75); PLATELET COUNT 351 X10'3 (140-440); RED BLOOD COUNT 5.31 X10'6 (4.20-5.60); RED CELL DISTRIBUTION WIDTH 14.7 % (11.5-14.5); WHITE BLOOD COUNT 15.3 X10'3 (4.5-11.0)
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
--- NOTE | 2018-10-01 19:41 | NUR ---
Will monitor patient q1h during shift. Pt c/o of general malaise, denies SOB, chest pain. Pt states she has had 3 loose stools today. Vitals stable, afebrile. Blood glucose is 178
[2018-10-01 20:00] VITALS: BP 160/83
[2018-10-01] MEDS: insulin glargine (Lantus) pen - multi-dose SQ SCH (21:00)
[2018-10-01] MEDS ORDERED: risperiDONE 2mg tablet PO SCH (21:00)
[2018-10-02] MEDS: proCHLORperazine 10mg tablet PO PRN ×2 (02:41→07:40)
[2018-10-02] MEDS: LORazepam 1 MG tablet PO PRN ×2 (02:41→22:32)
--- NOTE | 2018-10-02 04:12 | NUR ---
Nursing Progress Note: Legal hold: 5250 Client on involuntary status for DTS. Report received from JOCELYN Guallpa with use of SBAR Why are they here: The patient self-presented to the ER with c/o SOB. During this time, she also endorsed suicidal and homicidal thoughts. "I would not have any problem taking myself out. I would not talk about it, I would just do it like my brother did." Her tox screen was positive for meth and THC. She reports hearing voices in her head for her "entire life." She is homeless and states that she "caught the love of my life in bed with someone else." Assessment What has happened this shift: Patient was lying in bed with no apparent distress observed. Pt c/o of general malaise. Pt was given a cool wash cloth for her head. Pt vitals were stable, afebrile, blood glucose was 178. BG was retaken an hour later and it was 152, pt states she was feeling better. Pt refused her HS breathing treatment. Pt slept most of the shift woke up around 0240 c/o nausea, pt states she is having trouble sleeping and feeling anxious. Pt was given Ativan and Compazine po. At this time pt stated she uses a BiPap machine at home and it helps her to sleep. Will relay this to day shift for a respiratory consult. Pt report she had 3 loose BM this shift. Pt denies chest pain, but does c/o of intermittent SOB. It was suggested that she take her next breathing treatment, pt refused her PRN breathing treatment. Pts Trazodone was d/cd, pt states it made her have weird dreams. Pt denied SI, A/VH. States that taking a shower helps her not hear the voices. S/I, H/I: None reported or observed A/VH: None reported or observed Sleep: See sleep assessment notation ADL's: Independent Group attendance: shift engineer, no group Were meds taken: Pt is medication compliant Any med S/E: None reported or observed Mental Status Exam Appearance: Clean, disheveled Eye contact: Direct Behavior: Fatigued Speech: Soft, clear, normal rate/rhythm. Mood: Depressed, not feeling well Affect: Constricted Thought process: Linear Thought Content: Focused on feeling better Cognition: A/O x4 Insight: Poor Judgment: Poor Interventions PRN's used: Ativan, Compazine Therapeutic interventions: 1:1 therapeutic assessment, active listening, medication education, administration and monitoring for effects, blood glucose POC administered, Q15 min safety checks, therapeutic milieu and group therapy. Restraints/seclusion/emergency medication: N/A Justification of Continued Inpatient Treatment: Continued therapeutic support and medication management needed to provide stabilization, prevent decompensation, and decrease risk to patient and readmittance. Pt continues to have severe depression and anxiety as well as intrusive derogatory AH. Pt is homeless, a safe discharge plan must be formulated once she is physically and psychologically stable.
[2018-10-02] MEDS: predniSONE 20 mg tablet PO SCH (07:39)
[2018-10-02] MEDS: famotidine 20mg tablet PO SCH ×2 (07:39→21:41)
[2018-10-02] MEDS: metFORMIN 500mg tablet PO SCH ×2 (07:39→21:41)
[2018-10-02] MEDS: duloxetine 30mg CAPSULE.DR PO SCH (07:39)
[2018-10-02] MEDS: potassium Cl 20 mEq SR tablet PO SCH ×2 (07:39→21:41)
[2018-10-02] MEDS: levoTHYROXINE 25mcg tablet PO SCH (07:39)
[2018-10-02] MEDS: furosemide 40mg tablet PO SCH ×2 (07:40→20:00)
[2018-10-02 07:56] VITALS: BP 124/61
[2018-10-02] MEDS: BUDESONIDE 0.25 MG/2 ML AMPUL.NEB IH SCH ×2 (07:59→21:32)
[2018-10-02] MEDS: ipratropium/albuterol 3ml nebule NEB SCH ×4 (08:00→21:32)
[2018-10-02] MEDS: nystatin 500,000 unit/5ML UD oral suspension PO SCH ×2 (08:52→21:42)
[2018-10-02] MEDS: insulin Lispro (HumaLOG) vial - multi-dose SQ SCH ×3 (08:57→18:54)
[2018-10-02 10:10] LABS: BASOPHILS # (AUTO) 0.1 X10'3 (0-0.2); EOSINOPHILS # (AUTO) 0.1 X10'3 (0-0.9); EOSINOPHILS % (AUTO) 0.9 % (0-6); HEMATOCRIT 44.3 % (35.0-45.0); HEMOGLOBIN 14.9 g/dl (12.0-16.0); LYMPHOCYTES # (AUTO) 2.7 X10'3 (1.1-4.8); LYMPHOCYTES % (AUTO) 23.6 % (21-51); MEAN CORPUSCULAR HEMOGLOBIN 29.7 PG (27.0-31.0); MEAN CORPUSCULAR HGB CONC 33.6 g/dL (33.0-36.5); MEAN CORPUSCULAR VOLUME 88.6 FL (78-98); MEAN PLATELET VOLUME 8.7 FL (7.4-10.4); NEUTROPHILS # (AUTO) 7.4 X10'3 (1.8-7.7); NEUTROPHILS % (AUTO) 65.5 % (42-75); PLATELET COUNT 299 X10'3 (140-440); RED CELL DISTRIBUTION WIDTH 14.9 % (11.5-14.5); WHITE BLOOD COUNT 11.3 X10'3 (4.5-11.0)
--- NOTE | 2018-10-02 10:43 | NUR ---
Initial: Pt admit w/ depression, PTSD, SI. Hx DM A1C <7. Pt PO 75% avg meals but fluctuating between 100%/refusing meals. [facility] 10/01. Will continue to monitor. Rec: 1. continue carb controlled/mechanical soft diet 2. wt per rx Addendum: 10/02/18 at [address] Amended: Links added.
--- NOTE | 2018-10-02 15:10 | NUR ---
Nursing Progress Note: Legal hold: 5250 Client on involuntary status for DTS. Report received from JOCELYN Li with use of SBAR Why are they here: The patient self-presented to the ER with c/o SOB. During this time, she also endorsed suicidal and homicidal thoughts. "I would not have any problem taking myself out. I would not talk about it, I would just do it like my brother did." Her tox screen was positive for meth and THC. She reports hearing voices in her head for her "entire life." She is homeless and states that she "caught the love of my life in bed with someone else." Assessment What has happened this shift: Patient asleep at shift change. Awakened for BGM, medications and breakfast. Patient was encouraged to attend morning group, but had episode of nausea during group, compazine given with good result. Pt. heard crying on phone to sister. She states that she wants to be discharged and go live with her sister for a few days, she can live with her son for two weeks. She feels that she needs to be around family. Pt. states that her sister has gotten her out of a lot of bad situations. BGM 142, 276 - covered with Humalog. Pt. states that she feels physically sick, weak, tired. S/I, H/I: Denies. A/VH: AH at NOC mostly Sleep: 7.0 hrs. NOC, naps during day. ADL's: Independent Group attendance: a.m. group. Were meds taken: Pt is medication compliant Any med S/E: None reported or observed Mental Status Exam Appearance: Clean, disheveled, wearing green scrubs. Eye contact: Direct Behavior: Fatigued, sleeping. Speech: Soft, clear, normal rate/rhythm. Mood: Depressed, not feeling well Affect: Constricted Thought process: Linear Thought Content: Focused on feeling better, discharging with family. Cognition: A/O x4 Insight: Poor Judgment: Poor Interventions PRN's used: Compazine Therapeutic interventions: 1:1 to assess for severity of symptoms, active listening, medication education, administration and monitoring for effects, blood glucose POC administered, Q15 min safety checks, therapeutic milieu and group therapy. Restraints/seclusion/emergency medication: N/A Justification of Continued Inpatient Treatment: Continued therapeutic support and medication management needed to provide stabilization, prevent decompensation, and decrease risk to patient and readmittance. Pt continues to have severe depression and anxiety as well as intrusive derogatory AH. Pt is homeless, a safe discharge plan must be formulated once she is physically and psychologically stable.
[2018-10-02 19:31] VITALS: BP 104/58
[2018-10-02] MEDS: risperiDONE 0.5mg tablet PO SCH (21:42)
[2018-10-02] MEDS: insulin glargine (Lantus) pen - multi-dose SQ SCH (21:49)
--- NOTE | 2018-10-03 03:09 | NUR ---
Nursing Progress Note: Legal hold: 5250 Client on involuntary status for DTS. Report received from JOCELYN Cunningham with use of SBAR Why are they here: The patient self-presented to the ER with c/o SOB. During this time, she also endorsed suicidal and homicidal thoughts. "I would not have any problem taking myself out. I would not talk about it, I would just do it like my brother did." Her tox screen was positive for meth and THC. She reports hearing voices in her head for her "entire life." She is homeless and states that she "caught the love of my life in bed with someone else." Assessment What has happened this shift: Pt awake at start of shift said she was going home then said "It's up to you." Explained to pt no order for discharge in chart. Explained the nature of 5250 hold and when it would . Pt satisfied with information, accepting of needing to stay. At 19:00 pt sister visited demanding to know "why is my sister being held here" Sister agitated and demanding. Sister said the pt and her disabled son would always havwe a place in her home. Pt became agitated said if she wasn't allowed to leave her behavior would become "Out of hand I wouldn't like to go there." When it was pointed out to pt that was a threatening statement she immediately retracted it. Sister requested to speak with MD. Raymon Ole was able to speak with Sister. Afterward she was satisfied that Pt needed to be here and became pleasant and cooperative for rest of visit. After sister left pt pleasant and cooperative. Took shower. S/I, H/I: Denies. A/VH: AH at [facility] mostly Sleep: sleeping at this time ADL's: Independent Group attendance: did not come to group room for snack. Were meds taken: Pt is medication compliant Any med S/E: None reported or observed Mental Status Exam Appearance: Clean, disheveled, wearing green scrubs. Eye contact: Direct Behavior: Periods of anger about wanting to leave most of the time cooperative. Speech: Soft, clear, normal rate/rhythm. Mood: Depressed, not feeling well Affect: Constricted Thought process: Linear Thought Content: Focused on feeling better, discharging with family. Cognition: A/O x4 Insight: Poor Judgment: Poor Interventions PRN's used: Insulin Therapeutic interventions: 1:1 to assess for severity of symptoms, active listening, medication education, administration and monitoring for effects, blood glucose POC administered, Q15 min safety checks, therapeutic milieu and group therapy. Restraints/seclusion/emergency medication: N/A Justification of Continued Inpatient Treatment: Continued therapeutic support and medication management needed to provide stabilization, prevent decompensation, and decrease risk to patient and readmittance. Pt continues to have severe depression and anxiety as well as intrusive derogatory AH. Pt is homeless, a safe discharge plan must be formulated once she is physically and psychologically stable.
[2018-10-03] MEDS: ipratropium/albuterol 3ml nebule NEB SCH ×4 (07:22→19:42)
[2018-10-03] MEDS: BUDESONIDE 0.25 MG/2 ML AMPUL.NEB IH SCH ×2 (07:22→19:50)
[2018-10-03 07:43] VITALS: BP 127/62
[2018-10-03] MEDS: nystatin 500,000 unit/5ML UD oral suspension PO SCH (08:00)
[2018-10-03] MEDS: famotidine 20mg tablet PO SCH ×2 (08:10→20:00)
[2018-10-03] MEDS: duloxetine 30mg CAPSULE.DR PO SCH (08:10)
[2018-10-03] MEDS: predniSONE 20 mg tablet PO SCH (08:11)
[2018-10-03] MEDS: furosemide 40mg tablet PO SCH ×2 (08:11→13:14)
[2018-10-03] MEDS: potassium Cl 20 mEq SR tablet PO SCH (08:11)
[2018-10-03] MEDS: levoTHYROXINE 25mcg tablet PO SCH (08:11)
[2018-10-03] MEDS: metFORMIN 500mg tablet PO SCH ×2 (08:12→20:00)
[2018-10-03] MEDS: insulin Lispro (HumaLOG) vial - multi-dose SQ SCH ×2 (08:49→13:38)
[2018-10-03] MEDS ORDERED: potassium Cl 20 mEq SR tablet PO SCH (12:30)
[2018-10-03] MEDS: levoFLOXACIN 750MG TABLET PO SCH (13:14)
--- NOTE | 2018-10-03 14:27 | NUR ---
Nursing Progress Note: Legal hold: 5250 Client on involuntary status for DTS. Report received from JOCELYN Barahona with use of SBAR Why are they here: The patient self-presented to the ER with c/o SOB. During this time, she also endorsed suicidal and homicidal thoughts. "I would not have any problem taking myself out. I would not talk about it, I would just do it like my brother did." Her tox screen was positive for meth and THC. She reports hearing voices in her head for her "entire life." She is homeless and states that she "caught the love of my life in bed with someone else." Assessment What has happened this shift: Patient in bed asleep at shift change. Pt receiving nebulizer treatment and became nauseated and had to stop. Pt does get up for breakfast, but refuses to go to group due to feeling physically sick, and tired. States that she had nightmares last night, that her pillow was full of bottles and then animals came out and were being killed one after the other. She also states that she awoke barely being able to walk because she felt overmedicated, and felt like she had to use the pelletier like reading braille. Prednisone was discontinued. Pt. started on Levaquin. BGM 148, 151 covered by Humalog. S/I, H/I: Denies. A/VH: AH at NOC mostly Sleep: 6.75 hrs. NOC, naps during day. ADL's: Independent Group attendance: None. Were meds taken: Pt is medication compliant Any med S/E: Nightmares - discussed with DONN Glynn Mental Status Exam Appearance: Freshly showered woman with short hair, wearing green scrubs. Eye contact: Direct Behavior: Fatigued, sleeping. Speech: Soft, clear, normal rate/rhythm. Mood: Dysthymic. Affect: Constricted Thought process: Linear Thought Content: feeling sick, over medicated, discharging with family. Cognition: A/O x4 Insight: Poor Judgment: Poor Interventions PRN's used: None. Therapeutic interventions: 1:1 to assess for severity of symptoms, active listening, medication education, administration and monitoring for effects, blood glucose POC administered, Q15 min safety checks, therapeutic milieu and group therapy. Restraints/seclusion/emergency medication: N/A Justification of Continued Inpatient Treatment: Continued therapeutic support and medication management needed to provide stabilization, prevent decompensation, and decrease risk to patient and readmittance. Pt continues to have severe depression and anxiety as well as intrusive derogatory AH. Pt is homeless, a safe discharge plan must be formulated once she is physically and psychologically stable.
[2018-10-03] MEDS ORDERED: FAMO20TA8 PO (16:09)
[2018-10-03] MEDS ORDERED: DULO-31 PO (16:09)
[2018-10-03] MEDS ORDERED: DOCU100C38 PO (16:09)
[2018-10-03] MEDS ORDERED: GLIP10TA11 PO (16:09)
[2018-10-03] MEDS ORDERED: LEVO500T89 PO (16:09)
[2018-10-03] MEDS ORDERED: RISP3TAB3 PO (16:09)
--- NOTE | 2018-10-03 16:31 | NUR ---
Nursing Note: At approximately 15:15 patient was in art group and started having numbness of her face. Pt. escorted to her room by 3 staff members. Pts. vital signs were 91/46, P 89, R20, 02 sat 94%. 5 min. later 131/84. Dr. Harvey was on unit, and came into room and evaluated patient and called stroke alert, patient with left eye droop. Patient was taken down to the CT scanner. Patient's symptoms resolved in about 3 minutes. Reported to DONN Glynn.
[2018-10-03 20:00] VITALS: BP 95/54
[2018-10-03] MEDS ORDERED: docusate sod 100mg capsule PO SCH (20:00)
[2018-10-03] MEDS: risperiDONE 0.5mg tablet PO SCH (21:00)
[2018-10-03] MEDS: LORazepam 1 MG tablet PO PRN (21:30)
[2018-10-04] MEDS: ipratropium/albuterol 3ml nebule NEB SCH ×6 (00:17→23:55)
--- NOTE | 2018-10-04 01:17 | NUR ---
Nursing Progress Note: Legal hold: 5250 Client on involuntary status for DTS. Report received from JOSESITO Cunningham with use of SBAR Why are they here: The patient self-presented to the ER with c/o SOB. During this time, she also endorsed suicidal and homicidal thoughts. "I would not have any problem taking myself out. I would not talk about it, I would just do it like my brother did." Her tox screen was positive for meth and THC. She reports hearing voices in her head for her "entire life." She is homeless and states that she "caught the love of my life in bed with someone else." Assessment What has happened this shift: Pt in room and group room equal amounts during shift. During 1:1, pt performed strength assessment WNLs and had no indication nor did she verbalize other symptoms experienced in the afternoon. BP remains on the low side of normal for pt but pt us asymptomatic. Pt states 'I'm doing better, I know I needed help, groups are helpful". Pt recounted the stroke alert and confirmed she would inform RN of any symptoms she might feel come on. Pt refused Risperdal stating it gave her horrible nightmares. Pt also refused breathing tx and cpap because "I don't know the settings." Pt showered and read before turning in to sleep. S/I, H/I: Denies A/VH: Denies Sleep: See Charting ADL's: Independent Group attendance: Y - HS Snack Were meds taken: N - Refused Risperdal Any med S/E: None observed; pt reports nightmares after taking Risperdal the night prior Mental Status Exam Appearance: Clean, wearing personal clothing and nonskid socks Eye contact: Direct Behavior: Cooperative, Interacting with peers and staff alike, reading Speech: Soft, clear, normal rate/rhythm. Mood: "I'm feeling better" Affect: Expressive Thought process: Linear Thought Content: Focused on feeling better Cognition: A/O x4 Insight: Poor to fair Judgment: Poor to fair Interventions PRN's used: Ativan 1 mg for anxiety Therapeutic interventions: 1:1 to assess for severity of symptoms, active listening, medication education, administration and monitoring for effects, Q15 min safety checks, therapeutic milieu and group therapy. Restraints/seclusion/emergency medication: N/A Justification of Continued Inpatient Treatment: Continued therapeutic support and medication management needed to provide stabilization, prevent decompensation, and decrease risk to patient and readmittance. Pt continues to have anxiety. Pt is homeless, a safe discharge plan must be formulated once she is physically and psychologically stable. Addendum: 10/04/18 at 0345 by Blanka Mejia RN pt awake at 0330, stating she is anxious but would like to take a warm shower to relax. Composing Room Supervisor okay'd. Addendum: 10/04/18 at 0454 by Blanka Mejia RN Pt showering again due to emesis and soiling the bed (urine). Pt continues to vomit; bed and clothing cleaned and changed. Addendum: 10/04/18 at 0548 by Blanka Mejia RN When pt returned to bed, anti-nausea medication given and vitals checked: sat: 97%, Temp 99F, BPs: 172/100, HR 81; 183/108, HR 79 (automatic readings) 182/102, HR 84 (manual reading), Pt c/o nausea, anxiety. Denies any other signs and symptoms, 0535: On-call hospitalist, Dr. Peacock, notified of recent changes in pt status, including vital trends, recent BNP, and stroke alert w/ results on 10/03 DAY, and pt medical history. stated he is not concerned given pts current signs and symptoms and suggests we continue to monitor pt but it is unnecessary to intervene for BP at this time as he states it is related to the pt stress as it relates to pts nausea and not feeling well.
[2018-10-04] MEDS: proCHLORperazine 10mg tablet PO PRN (04:08)
[2018-10-04] MEDS: proCHLORperazine 25mg suppository RC PRN (05:17)
[2018-10-04] MEDS: LORazepam 1 MG tablet PO PRN ×2 (05:43→20:28)
[2018-10-04 07:00] VITALS: BP 197/91
[2018-10-04] MEDS ORDERED: cloNIDine 0.1 mg tablet PO ONE (07:10)
[2018-10-04] MEDS: levoTHYROXINE 25mcg tablet PO SCH (07:23)
[2018-10-04] MEDS: BUDESONIDE 0.25 MG/2 ML AMPUL.NEB IH SCH ×2 (07:29→19:34)
[2018-10-04] MEDS ORDERED: glipizide 5mg tablet PO SCH (07:30)
[2018-10-04 08:50] VITALS: BP 149/69
[2018-10-04] MEDS: duloxetine 30mg CAPSULE.DR PO SCH (09:06)
[2018-10-04] MEDS: furosemide 40mg tablet PO SCH ×2 (09:06→11:34)
[2018-10-04] MEDS: famotidine 20mg tablet PO SCH ×2 (09:07→20:28)
[2018-10-04] MEDS: metFORMIN 500mg tablet PO SCH ×2 (09:07→20:28)
[2018-10-04] MEDS: insulin Lispro (HumaLOG) vial - multi-dose SQ SCH (09:08)
[2018-10-04] MEDS: levoFLOXACIN 750MG TABLET PO SCH (11:34)
[2018-10-04 13:08] VITALS: BP 86/50
[2018-10-04 13:27] VITALS: BP 110/55
[2018-10-04] MEDS ORDERED: metoclopramide 10mg tablet PO PRN (16:15)
--- NOTE | 2018-10-04 16:55 | NUR ---
Nursing Progress Note: Legal hold: 5250 Client on involuntary status for DTS. Report received from JOCELYN Moscoso with use of SBAR Why are they here: The patient self-presented to the ER with c/o SOB. During this time, she also endorsed suicidal and homicidal thoughts. "I would not have any problem taking myself out. I would not talk about it, I would just do it like my brother did." Her tox screen was positive for meth and THC. She reports hearing voices in her head for her "entire life." She is homeless and states that she "caught the love of my life in bed with someone else." Assessment What has happened this shift: Pt was sleeping at shift change. 0700 blood pressure 197/91, CRN notified hospitalist, order received for 0.2 mg Clonidine. Pt refused her 0800 medications due to nausea. She did not eat breakfast, but consumed 100% of lunch. At 0850, BP 149/69 and 1332, BP 110/55. In the AM, pt complained of nausea, but no vomiting noted. Pt took shower at 0740, after 30 minutes pt needed to be encouraged to get out of the shower and return to her room. Pt blood glucose monitored. Per Dr. Chan, hyperglycemic protocol discontinued, oral medications glipizide and metformin continued. Pt to continue AC/HS accuchecks. After lunch, pt napped in her room throughout the afternoon. Pt did not report nausea during this time. S/I, H/I: Denies. A/VH: AH Sleep: Napped ADL's: Independent Group attendance: None. Were meds taken: Pt did not take 0800 medications due to nausea. Any med S/E: None reported Mental Status Exam Appearance: Green scrubs, short hair, clean Eye contact: Indirect Behavior: Fatigued. Speech: Normal rate/rhythm. Mood: Depressed Affect: Constricted Thought process: Linear Thought Content: Concern that she is sick and wants to be transferred to a medical floor. Cognition: A/O x4 Insight: Poor Judgment: Poor Interventions PRN's used: None. Therapeutic interventions: Provided 1:1 therapeutic communication and active listening, administered medicine w/education and monitored for side effects, encouraged attention to ADL's, monitored blood glucose, Q 15 min monitoring for safety check, maintained therapeutic milieu. Restraints/seclusion/emergency medication: N/A Justification of Continued Inpatient Treatment: Continued therapeutic support and medication management needed to provide stabilization, prevent decompensation, and decrease risk to patient and readmittance. Addendum: 10/04/18 at 1746 by Zaira Butts RN Amend: Pt denies nausea at this time. She refused to take 1730 KDur.
[2018-10-04] MEDS: potassium Cl 20 mEq SR tablet PO SCH (17:30)
[2018-10-04 20:38] VITALS: BP 94/60
[2018-10-04] MEDS ORDERED: risperiDONE 0.5mg tablet PO SCH (21:00)
--- NOTE | 2018-10-04 23:11 | NUR ---
Nursing Progress Note: Legal hold: 5250 Client on involuntary status for DTS. Report received from JOCELYN Hummel with use of SBAR Why are they here: The patient self-presented to the ER with c/o SOB. During this time, she also endorsed suicidal and homicidal thoughts. "I would not have any problem taking myself out. I would not talk about it, I would just do it like my brother did." Her tox screen was positive for meth and THC. She reports hearing voices in her head for her "entire life." She is homeless and states that she "caught the love of my life in bed with someone else." Assessment What has happened this shift: Pt sleeping at change of shift. During 1:1, pt stated she is feeling much better than yesterday and earlier this morning; denies nausea and neurological exam revealed no deficits. Pt stated she is looking forward to discharge but unsure where the nausea is stemming from and that is concerning to her. Risperdal decreased from 3mg to 1 mg but pt still refused because "I don't like the animations (referring to nightmares) it gave me." Pt endorsed mild anxiety for which Ativan 1mg was administered. Pt BPs within the low end of normal this shift. Pt turned into to sleep around midnight. S/I, H/I: Denies A/VH: Denies Sleep: See Charting ADL's: Independent Group attendance: Y - HS Snack Were meds taken: N; Pt compliant with all meds except risperdal 1 mg. Any med S/E: Pt states Risperdal gives her might terrors, None Observed Mental Status Exam Appearance: Clean, wearing personal clothing and nonskid socks Eye contact: Direct Behavior: Fatigued, agreeable; Pt resting and interacting with peers in group room; watched [employer] show before going to bed Speech: Normal rate/rhythm. Mood: "I feel okay now" Affect: Constricted Thought process: Linear Thought Content: Concern that she is sick but looking forward to discharge Cognition: A/O x4 Insight: Poor Judgment: Fair Interventions PRN's used: None. Therapeutic interventions: Provided 1:1 therapeutic communication and active listening, administered medicine w/education and monitored for side effects, encouraged attention to ADL's, monitored blood glucose, Q 15 min monitoring for safety check, maintained therapeutic milieu. Restraints/seclusion/emergency medication: N/A Justification of Continued Inpatient Treatment: Continued therapeutic support and medication management needed to provide stabilization, prevent decompensation, and decrease risk to patient and readmittance.
[2018-10-05] MEDS: ipratropium/albuterol 3ml nebule NEB SCH ×2 (07:00→12:20)
[2018-10-05] MEDS: levoTHYROXINE 25mcg tablet PO SCH (07:21)
[2018-10-05] MEDS: metFORMIN 500mg tablet PO SCH (07:21)
[2018-10-05] MEDS: furosemide 40mg tablet PO SCH ×2 (07:21→13:00)
[2018-10-05] MEDS: famotidine 20mg tablet PO SCH (07:21)
[2018-10-05] MEDS: duloxetine 30mg CAPSULE.DR PO SCH (07:21)
[2018-10-05] MEDS: potassium Cl 20 mEq SR tablet PO SCH (07:30)
[2018-10-05] MEDS ORDERED: glipizide 5mg tablet PO SCH (07:30)
[2018-10-05 07:40] VITALS: BP 105/71
[2018-10-05] MEDS: levoFLOXACIN 750MG TABLET PO SCH (10:40)
[2018-10-05] MEDS ORDERED: RISP0.5T3 PO (13:33)
[2018-10-05] MEDS ORDERED: ATI1T PO (13:33)
[2018-10-05] MEDS ORDERED: HYDR-3686 PO (13:33)
--- NOTE | 2018-10-05 13:40 | NUR ---
DISCHARGE NOTE: All personal belongings inventoried and signed per CINDY Frank. Pt discharged to sisters home. She was picked up by her sister. She will follow up w/Andie Vega NP and Dr. Roach at [facility]. Pt education provided on Home Medications, Coping Skills and Resources in the Community. Pt denies SI/HI She was smiling; collecting and trading phone numbers with other patients. Pt left in good spirits thanking all the staff.
== END 2018-10-05 13:40 | disposition home or self-care (01) | DRG 751 ==
LOC: ADULT MH 15:00
PROVIDERS: ADMIT Psychiatry & Neurology Psychiatry; ATTEND Internal Medicine
PROC: 3E0234Z Introduction of Serum, Toxoid and Vaccine into Muscle, Percutaneous Approach (ICD-10-PCS; principal; 2018-09-25)
DX: F33.3 Major depressive disorder, recurrent, severe with psychotic symptoms (principal); J96.10 Chronic respiratory failure, unspecified whether with hypoxia or hypercapnia; E11.40 Type 2 diabetes mellitus with diabetic neuropathy, unspecified; E11.65 Type 2 diabetes mellitus with hyperglycemia; E66.01 Morbid (severe) obesity due to excess calories; E03.9 Hypothyroidism, unspecified; G47.33 Obstructive sleep apnea (adult) (pediatric); R45.851 Suicidal ideations; F43.10 Post-traumatic stress disorder, unspecified; F43.23 Adjustment disorder with mixed anxiety and depressed mood; F12.90 Cannabis use, unspecified, uncomplicated; F15.90 Other stimulant use, unspecified, uncomplicated; J44.1 Chronic obstructive pulmonary disease with (acute) exacerbation; I50.32 Chronic diastolic (congestive) heart failure; K59.00 Constipation, unspecified; Z68.41 Body mass index [BMI] 40.0-44.9, adult; Z79.890 Hormone replacement therapy; Z99.81 Dependence on supplemental oxygen; Z88.0 Allergy status to penicillin; Z88.8 Allergy status to other drugs, medicaments and biological substances; Z98.51 Tubal ligation status; Z90.710 Acquired absence of both cervix and uterus; Z59.0 Homelessness; Z87.891 Personal history of nicotine dependence; Z79.84 Long term (current) use of oral hypoglycemic drugs; Z91.040 Latex allergy status; Z79.899 Other long term (current) drug therapy; Z23 Encounter for immunization
CPT/HCPCS: 36415; 36600; 70450; 71045; 74018; 80053; 80061; 82803; 82948; 83036; 83880; 84443; 85018; 85025; 87070; 90732; 94640; 94760; J1815; J2060; J2405; J2765; J7030; J7512; J7626; J8597; Q0164; Q0177

== ENCOUNTER 2019-05-18 22:18 | Emergency (ER) | payer MEDICAID ==
[~2019-05-18] VITALS: Ht 165.1 cm; Wt 109.1 kg
[~2019-05-18 22:18] MED LIST changes: +ALBU18HF2 INH; +ATI1T PO; -AZIT-63 PO; +CLON-528 PO; +DOCU100C38 PO; +DULO-31 PO; +FAMO20TA8 PO; +GLIP10TA11 PO; +HYDR-3686 PO; +LEVO500T89 PO; +METF-436 PO; +POTA20PA40 PO; -PRED20TA PO; +RISP0.5T3 PO; +RISP3TAB3 PO; +TIOT18CA3 INH
--- NOTE | 2019-05-18 22:37 | NUR ---
PA AT BEDSIDE TO SEE PT PATIENT EXPRESSESS THAT SHE IS HEARING VOICING
--- NOTE | 2019-05-18 22:38 | NUR ---
PATIENT EXPRESSES HEARING VOICES, THAT ARE "TELLING ME TO PUNCH THE SHIT OUT OF MYSELF " PT STATES THAT SHE IS HEARING VOICES AND SHE CAN LITERALLY SEE HERSELF KICKING HER ASS, I WANT TO HURT MYSELF TODAY, JUMP OFF THE BRIDGE, OR DO WHAT MY BROTHER DID , PUT A ROPE AROUND MY NECK" ADMITS TO SMOKING SOME MARIJUANA TO CALMM HER HEAD LAST NIGHT DENIES ANYHOTHER DRUG USE. PT STATES THAT SHE CANT REMEMEBR ALOT OF THINGS CANT REMEMEBR THE LAST TIME SHE TOOK HER MEDICATION OR FILLED HER PRESCRIPTIONS. PT STATES THAT SHE HAS BEEN ADMITTED BEFORE TO [facility]. PT VERBALIZED THE SUCIDE PLAN CURRENTLY BUT HAS CONTRACTYED FOR SAFETY AT THIS TIME SHE IS OUT IN THE COMMUNITY FOR HELP. PT TELLS REGISTRATION SHE CAN REMEBER SOME THINGS NOT OTHERS LIKE HER DAUGHTERS CONTACT BUT WAS ABLE TO GIVE HER CURRENT ADDRESS.
[2019-05-18] MEDS ORDERED: LORazepam 1 MG tablet PO ONE (22:45)
[2019-05-18] MEDS ORDERED: dexamethasone 4mg tablet PO ONE (23:00)
--- NOTE | 2019-05-18 23:20 | NUR ---
TELE MEDICINE CARE IN FROM OF PT NOW. JUST GIVEN DECADRON. STABLE VS. PAIN TO THROAT 5 OUT OF 10, INCREASING TO 10 IF SWALLOWING
--- NOTE | 2019-05-18 23:40 | NUR ---
Ignacio jessica in ED - 05/19/19 at 0000 by JANET STEVEN MANSFIELD
--- NOTE | 2019-05-19 | NUR ---
PT PSY CONCULT COMPLETE
[2019-05-19] MEDS ORDERED: OLANZapine 5mg rapidly disint. tablet PO ONE (00:05)
[2019-05-19] MEDS ORDERED: clindamycin 150mg capsule PO ONE (00:05)
[2019-05-19 00:35] LABS: URINE HCG NEGATIVE (NEG)
[2019-05-19 00:41] LABS: BASOPHILS # (AUTO) 0.1 X10'3 (0-0.2); EOSINOPHILS # (AUTO) 0.1 X10'3 (0-0.9); EOSINOPHILS % (AUTO) 0.7 % (0-6); HEMOGLOBIN 15.6 g/dl (12.0-16.0)
[2019-05-19 00:42] LABS: BASOPHILS % (AUTO) 0.5 % (0-1); HEMATOCRIT 45.4 % (35.0-45.0); LYMPHOCYTES # (AUTO) 1.4 X10'3 (1.1-4.8); LYMPHOCYTES % (AUTO) 7.5 % (21-51); MEAN CORPUSCULAR HEMOGLOBIN 31.6 PG (27.0-31.0); MEAN CORPUSCULAR HGB CONC 34.4 g/dL (33.0-36.5); MEAN CORPUSCULAR VOLUME 91.7 FL (78-98); MEAN PLATELET VOLUME 8.1 FL (7.4-10.4); MONOCYTES # (AUTO) 0.9 X10'3 (0-0.9); MONOCYTES % (AUTO) 4.7 % (2-12); NEUTROPHILS # (AUTO) 16.1 X10'3 (1.8-7.7); NEUTROPHILS % (AUTO) 86.6 % (42-75); PLATELET COUNT 361 X10'3 (140-440); RED BLOOD COUNT 4.95 X10'6 (4.20-5.60); RED CELL DISTRIBUTION WIDTH 14.3 % (11.5-14.5); WHITE BLOOD COUNT 18.6 X10'3 (4.5-11.0)
[2019-05-19 00:48] LABS: URINE AMPHETAMINE SCREEN NEGATIVE (Neg); URINE BARBITUATE SCREEN NEGATIVE (Neg); URINE BENZODIAZEPINES SCREEN NEGATIVE (Neg); URINE CANNABINOID SCREEN NEGATIVE (Neg); URINE COCAINE SCREEN NEGATIVE (Neg); URINE METHADONE SCREEN NEGATIVE (Neg); URINE OPIATE SCREEN NEGATIVE (Neg); URINE PHENCYCLIDINE SCREEN NEGATIVE (Neg)
[2019-05-19 00:55] LABS: ALANINE AMINOTRANSFERASE 25 U/L (12-78); ALBUMIN 3.9 G/DL (3.4-5.0); ALKALINE PHOSPHATASE 119 IU/L (46-116); ANION GAP 12 (8-16); ASPARTATE AMINO TRANSFERASE 23 U/L (10-37); BILIRUBIN,TOTAL 0.5 MG/DL (0.1-1.0); BLOOD UREA NITROGEN 14 MG/DL (7-18); BUN/CREATININE RATIO 11.3 (6.6-38.0); CALCIUM 9.3 MG/DL (8.5-10.1); CHLORIDE 98 MMOL/L (99-107); CREATININE 1.24 MG/DL (0.40-0.90); GLUCOSE 136 MG/DL (70-104); POTASSIUM 4.7 MMOL/L (3.5-5.1); SODIUM 133 MMOL/L (135-145); TOTAL CARBON DIOXIDE 23.5 MMOL/L (24-32); TOTAL PROTEIN 7.9 G/DL (6.4-8.2); eGFR 45 ML/MIN
[2019-05-19 00:58] LABS: ETHANOL < 0.010 GM/DL (0.0-0.010)
--- NOTE | 2019-05-19 02:00 | NUR ---
Pt brought over to overflow at 0200 accompanied by staff. Pt is disrobed and changed into [facility]. She uses the restoom and immedately falls asleep.
[2019-05-19] MEDS ORDERED: LORazepam 1 MG tablet PO PRN (02:50)
[2019-05-19] MEDS ORDERED: albuterol 2.5 MG/3 ML nebule NEB PRN (04:00)
[2019-05-19 05:48] VITALS: BP 154/74
--- NOTE | 2019-05-19 07:00 | NUR ---
Pt sleeping in bed, snoring without complaints.
[2019-05-19] MEDS ORDERED: glipizide 5mg tablet PO SCH (07:30)
[2019-05-19] MEDS ORDERED: metFORMIN 500mg tablet PO SCH (07:30)
[2019-05-19] MEDS ORDERED: clindamycin 150mg capsule PO SCH (08:00)
[2019-05-19] MEDS ORDERED: potassium Cl 20 mEq SR tablet PO SCH (08:00)
[2019-05-19] MEDS ORDERED: levoTHYROXINE 25mcg tablet PO SCH (08:00)
[2019-05-19] MEDS ORDERED: furosemide 40mg tablet PO SCH (08:00)
--- NOTE | 2019-05-19 09:04 | NUR ---
PT RESTING ON RIGHT SIDE RR EQUAL AND UNLABORED
--- NOTE | 2019-05-19 11:00 | NUR ---
Pt currently laying in bed, eyes closed, without complaints. Pt was sitting on edge of bed for a while.
--- NOTE | 2019-05-19 13:00 | NUR ---
Pt up sitting on side of bed eating lunch.
--- NOTE | 2019-05-19 15:00 | NUR ---
Pt cooperative with assessment by [facility].
[2019-05-19] MEDS ORDERED: CLIN150C8 PO (15:14)
[2019-05-19] MEDS ORDERED: lactobacillus rhamnosus 10,000 MMU CELLS/CAPSULE PO SCH (20:00)
== END 2019-05-19 15:50 | disposition home or self-care (01) ==
LOC: ER 22:18
DX: R45.851 Suicidal ideations (principal); J02.0 Streptococcal pharyngitis; N18.9 Chronic kidney disease, unspecified; J44.9 Chronic obstructive pulmonary disease, unspecified; F12.90 Cannabis use, unspecified, uncomplicated; F15.90 Other stimulant use, unspecified, uncomplicated; Z87.891 Personal history of nicotine dependence; Z98.51 Tubal ligation status; Z98.890 Other specified postprocedural states; Z88.8 Allergy status to other drugs, medicaments and biological substances; Z88.0 Allergy status to penicillin; Z91.040 Latex allergy status; Z79.899 Other long term (current) drug therapy
CPT/HCPCS: 36415; 80053; 80305; 80320; 81025; 82948; 85025; 87880; 99284

== ENCOUNTER 2020-02-23 19:30 | Emergency (ER) | payer MEDICAID ==
[~2020-02-23] VITALS: Ht 162.6 cm; Wt 134.3 kg
[~2020-02-23 19:30] MED LIST changes: +CLIN150C8 PO; -CLON-528 PO; -DOCU100C38 PO; -DULO-31 PO; -FAMO20TA8 PO; -HYDR-3686 PO; -LEVO500T89 PO; -RISP0.5T3 PO; -RISP3TAB3 PO; -TIOT18CA3 INH
[2020-02-23 20:59] LABS: EOSINOPHILS # (AUTO) 0.4 X10'3 (0-0.9); HEMOGLOBIN 12.7 g/dl (12.0-16.0); LYMPHOCYTES # (AUTO) 2.5 X10'3 (1.1-4.8); MEAN CORPUSCULAR HGB CONC 33.6 g/dL (33.0-36.5); MONOCYTES # (AUTO) 0.6 X10'3 (0-0.9); WHITE BLOOD COUNT 8.7 X10'3 (4.5-11.0)
[2020-02-23 21:01] LABS: BASOPHILS % (AUTO) 0.4 % (0-1); HEMATOCRIT 37.7 % (35.0-45.0); LYMPHOCYTES % (AUTO) 28.3 % (21-51); MEAN CORPUSCULAR VOLUME 92.2 FL (78-98); MEAN PLATELET VOLUME 9.2 FL (7.4-10.4); NEUTROPHILS # (AUTO) 5.3 X10'3 (1.8-7.7); NEUTROPHILS % (AUTO) 60.3 % (42-75); PLATELET COUNT 294 X10'3 (140-440); RED BLOOD COUNT 4.09 X10'6 (4.20-5.60); RED CELL DISTRIBUTION WIDTH 14.3 % (11.5-14.5)
[2020-02-23 21:05] LABS: ALANINE AMINOTRANSFERASE 43 U/L (12-78); ALBUMIN 3.1 G/DL (3.4-5.0); ALBUMIN/GLOBULIN RATIO 0.8 (1.1-1.5); ALKALINE PHOSPHATASE 146 IU/L (46-116); ANION GAP 5 (8-16); ASPARTATE AMINO TRANSFERASE 32 U/L (10-37); BILIRUBIN,TOTAL 0.2 MG/DL (0.1-1.0); BLOOD UREA NITROGEN 19 MG/DL (7-18); BUN/CREATININE RATIO 15.6 (6.6-38.0); CALCIUM 8.7 MG/DL (8.5-10.1); CHLORIDE 107 MMOL/L (99-107); CREATININE 1.22 MG/DL (0.40-0.90); GLUCOSE 147 MG/DL (70-104); POTASSIUM 4.2 MMOL/L (3.5-5.1); SODIUM 140 MMOL/L (135-145); TOTAL CARBON DIOXIDE 28.1 MMOL/L (24-32); TOTAL PROTEIN 7.2 G/DL (6.4-8.2); eGFR 46 ML/MIN
--- NOTE | 2020-02-23 22:02 | NUR ---
BREAKING PRIMARY RN- WILL CONT TO MONITOR.
--- NOTE | 2020-02-23 22:07 | NUR ---
PROVIDED PT WITH WATER- SHE DOES NOT NEED TO URINATE AT THIS TIME. WILL CHECK BACK
[2020-02-23] MEDS ORDERED: CLIN300C70 PO (22:20)
[2020-02-23 22:51] VITALS: BP 154/81
== END 2020-02-23 22:52 | disposition home or self-care (01) ==
LOC: ER 19:36
DX: L03.116 Cellulitis of left lower limb (principal); L03.115 Cellulitis of right lower limb; J44.9 Chronic obstructive pulmonary disease, unspecified; E11.9 Type 2 diabetes mellitus without complications; F12.90 Cannabis use, unspecified, uncomplicated; F15.90 Other stimulant use, unspecified, uncomplicated; Z72.89 Other problems related to lifestyle; Z98.51 Tubal ligation status; Z98.890 Other specified postprocedural states; Z87.891 Personal history of nicotine dependence; Z88.8 Allergy status to other drugs, medicaments and biological substances; Z91.040 Latex allergy status; Z88.0 Allergy status to penicillin; Z79.899 Other long term (current) drug therapy; Z79.84 Long term (current) use of oral hypoglycemic drugs
CPT/HCPCS: 36415; 80053; 82948; 83605; 84145; 84484; 85025; 87040; 99284

== ENCOUNTER 2020-03-16 12:24 | Emergency (ER) | payer MEDICARE, MEDICAID ==
[~2020-03-16] VITALS: Ht 165.1 cm; Wt 135.0 kg
[2020-03-16] MEDS ORDERED: triamcinolone acetonide 40mg/ml inj IM ONE (13:20)
[2020-03-16] MEDS ORDERED: HYDR50CA PO (13:33)
[2020-03-16] MEDS ORDERED: METH4TAB81 PO (13:33)
[2020-03-16] MEDS ORDERED: PERM60CR19 TOP (13:33)
[2020-03-16 14:26] VITALS: BP 146/76
== END 2020-03-16 14:20 | disposition home or self-care (01) ==
LOC: ER 12:24
DX: I87.2 Venous insufficiency (chronic) (peripheral) (principal); R60.0 Localized edema; J44.9 Chronic obstructive pulmonary disease, unspecified; E11.9 Type 2 diabetes mellitus without complications; F12.90 Cannabis use, unspecified, uncomplicated; F15.90 Other stimulant use, unspecified, uncomplicated; Z98.51 Tubal ligation status; Z98.890 Other specified postprocedural states; Z88.0 Allergy status to penicillin; Z91.048 Other nonmedicinal substance allergy status; Z88.8 Allergy status to other drugs, medicaments and biological substances; Z79.2 Long term (current) use of antibiotics; Z79.899 Other long term (current) drug therapy
CPT/HCPCS: 96372; 99283; J3301

== ENCOUNTER 2020-05-30 20:35 | Emergency (ER) | payer MEDICARE, MEDICAID ==
[~2020-05-30] VITALS: Ht 162.6 cm; Wt 136.4 kg
[~2020-05-30 20:35] MED LIST changes: +HYDR50CA PO; +METH4TAB81 PO
[2020-05-31] MEDS ORDERED: CefTRIAXone 2gm/D5W 50ml BAG 50 ML IV ONE (00:40)
[2020-05-31] MEDS ORDERED: vancomycin/NS 1 GM ADD-VANTAGE 250 ML IV ONE (00:40)
--- NOTE | 2020-05-31 01:14 | NUR ---
PT REPORTING PAIN - MD AWARE, NO NEW ORDERS
[2020-05-31 01:23] LABS: BASOPHILS % (AUTO) 0.4 % (0-1); EOSINOPHILS # (AUTO) 0.2 X10'3 (0-0.9); EOSINOPHILS % (AUTO) 2.6 % (0-6); HEMATOCRIT 39.3 % (35.0-45.0); HEMOGLOBIN 13.4 g/dl (12.0-16.0); LYMPHOCYTES # (AUTO) 2.1 X10'3 (1.1-4.8); LYMPHOCYTES % (AUTO) 25.4 % (21-51); MEAN CORPUSCULAR HEMOGLOBIN 31.6 PG (27.0-31.0); MEAN CORPUSCULAR HGB CONC 34.1 g/dL (33.0-36.5); MEAN CORPUSCULAR VOLUME 92.7 FL (78-98); MEAN PLATELET VOLUME 8.2 FL (7.4-10.4); MONOCYTES # (AUTO) 0.7 X10'3 (0-0.9); MONOCYTES % (AUTO) 8.4 % (2-12); NEUTROPHILS # (AUTO) 5.3 X10'3 (1.8-7.7); NEUTROPHILS % (AUTO) 63.2 % (42-75); PLATELET COUNT 348 X10'3 (140-440); RED BLOOD COUNT 4.24 X10'6 (4.20-5.60); RED CELL DISTRIBUTION WIDTH 14.8 % (11.5-14.5); WHITE BLOOD COUNT 8.3 X10'3 (4.5-11.0)
[2020-05-31 01:40] LABS: ALANINE AMINOTRANSFERASE 51 U/L (12-78); ALBUMIN 3.1 G/DL (3.4-5.0); ALBUMIN/GLOBULIN RATIO 0.8 (1.1-1.5); ALKALINE PHOSPHATASE 127 IU/L (46-116); ANION GAP 6 (8-16); ASPARTATE AMINO TRANSFERASE 22 U/L (10-37); BILIRUBIN,TOTAL 0.3 MG/DL (0.1-1.0); BLOOD UREA NITROGEN 19 MG/DL (7-18); BUN/CREATININE RATIO 17.1 (6.6-38.0); CALCIUM 8.8 MG/DL (8.5-10.1); CHLORIDE 105 MMOL/L (99-107); CREATININE 1.11 MG/DL (0.40-0.90); GLUCOSE 186 MG/DL (70-104); SODIUM 137 MMOL/L (135-145); TOTAL PROTEIN 7.1 G/DL (6.4-8.2); eGFR 51 ML/MIN
[2020-05-31] MEDS ORDERED: SULF1TAB49 PO (02:02)
--- NOTE | 2020-05-31 02:03 | NUR ---
pt reports continued high levels of pain in her lower left leg. requesting motrin. andre young made aware of pt request. no new orders at this time. will continue to monitor pt
[2020-05-31] MEDS ORDERED: acetaminophen 325mg tablet PO ONE (02:05)
--- NOTE | 2020-05-31 02:45 | NUR ---
IV VANCO INFUSING - PT IS SLEEPING WITH SNORING RESPIRATIONS, EVEN AND UNLABORED.
[2020-05-31 03:41] VITALS: BP 159/91
== END 2020-05-31 03:41 | disposition home or self-care (01) ==
LOC: ER 20:36
DX: I87.8 Other specified disorders of veins (principal); L03.116 Cellulitis of left lower limb; E11.9 Type 2 diabetes mellitus without complications; J44.9 Chronic obstructive pulmonary disease, unspecified; F12.10 Cannabis abuse, uncomplicated; F15.10 Other stimulant abuse, uncomplicated; Z88.0 Allergy status to penicillin; Z88.8 Allergy status to other drugs, medicaments and biological substances; Z91.040 Latex allergy status; Z79.899 Other long term (current) drug therapy
CPT/HCPCS: 36415; 80053; 83605; 83880; 84145; 85025; 87040; 96365; 96366; 96367; 99285; J0696; J3370; 61020

== ENCOUNTER 2020-07-31 06:39 | Emergency (ER) | payer MEDICARE, MEDICAID ==
[~2020-07-31] VITALS: Ht 162.6 cm; Wt 136.4 kg
[2020-07-31 07:47] VITALS: BP 124/72
--- NOTE | 2020-07-31 07:55 | NUR ---
Had pt march at [facility] for activity. Pt marched approx three minutes, sats 94-96 on RA, HR 70s
[2020-07-31 08:39] LABS: BASOPHILS % (AUTO) 0.2 % (0-1); EOSINOPHILS # (AUTO) 0.2 X10'3 (0-0.9); HEMOGLOBIN 13.5 g/dl (12.0-16.0); LYMPHOCYTES # (AUTO) 1.5 X10'3 (1.1-4.8); LYMPHOCYTES % (AUTO) 24.2 % (21-51); MEAN CORPUSCULAR HEMOGLOBIN 30.8 PG (27.0-31.0); MEAN CORPUSCULAR HGB CONC 33.6 g/dL (33.0-36.5); MEAN CORPUSCULAR VOLUME 91.4 FL (78-98); MEAN PLATELET VOLUME 8.8 FL (7.4-10.4); MONOCYTES # (AUTO) 0.4 X10'3 (0-0.9); NEUTROPHILS % (AUTO) 64.6 % (42-75); PLATELET COUNT 313 X10'3 (140-440); RED BLOOD COUNT 4.38 X10'6 (4.20-5.60); RED CELL DISTRIBUTION WIDTH 15.3 % (11.5-14.5); WHITE BLOOD COUNT 6.1 X10'3 (4.5-11.0)
[2020-07-31 08:42] LABS: ALBUMIN 3.4 G/DL (3.4-5.0); ANION GAP 9 (8-16); BLOOD UREA NITROGEN 17 MG/DL (7-18); BUN/CREATININE RATIO 12.3 (6.6-38.0); CALCIUM 8.6 MG/DL (8.5-10.1); CHLORIDE 102 MMOL/L (99-107); CREATININE 1.38 MG/DL (0.40-0.90); GLUCOSE 256 MG/DL (70-104); POTASSIUM 3.8 MMOL/L (3.5-5.1); SODIUM 140 MMOL/L (135-145); TOTAL CARBON DIOXIDE 29.4 MMOL/L (24-32); eGFR 40 ML/MIN
[2020-07-31] MEDS ORDERED: CODE10LI PO (08:59)
== END 2020-07-31 09:50 | disposition home or self-care (01) ==
LOC: ER 06:39
DX: R09.81 Nasal congestion (principal); Z20.822 Contact with and (suspected) exposure to COVID-19; R11.2 Nausea with vomiting, unspecified; R05 Cough; R43.8 Other disturbances of smell and taste; J44.9 Chronic obstructive pulmonary disease, unspecified; I50.9 Heart failure, unspecified; E11.9 Type 2 diabetes mellitus without complications; Z98.51 Tubal ligation status; Z87.891 Personal history of nicotine dependence; Z88.8 Allergy status to other drugs, medicaments and biological substances; Z88.0 Allergy status to penicillin; Z88.6 Allergy status to analgesic agent; Z91.040 Latex allergy status; Z79.899 Other long term (current) drug therapy
CPT/HCPCS: 36415; 71045; 80048; 85025; 87635; 93005; 99285

== ENCOUNTER 2020-11-05 11:35 | Emergency (ER) | payer MEDICARE, MEDICAID ==
[~2020-11-05] VITALS: Ht 165.1 cm; Wt 136.4 kg
[~2020-11-05 11:35] MED LIST changes: -ATI1T PO; -CLIN150C8 PO; -FURO40TA4 PO; -GLIP10TA11 PO; +HYDR-3965 PO; -HYDR50CA PO; +LEVO175T7 PO; -LEVO25TA2 PO; -METH4TAB81 PO; -POTA20PA40 PO; +RISP0.253 PO; +TIOT4MIS5 PO
[2020-11-05] MEDS ORDERED: BUPIVAcaine/PF 2.5 mg/ml (0.25%) 30ml vial IJ ONE (12:45)
[2020-11-05] MEDS ORDERED: triamcinolone acetonide 40mg/ml inj IJ ONE (12:45)
[2020-11-05] MEDS ORDERED: HYDROcodone/acetaminophen 5mg/325mg tablet PO ONE (12:45)
[2020-11-05] MEDS ORDERED: acetaminophen 325mg tablet PO ONE (12:45)
[2020-11-05] MEDS ORDERED: ketorolac trometh inj. 60 MG/2 ML VIAL IM ONE (12:45)
[2020-11-05] MEDS ORDERED: HYDR-3965 PO (13:44)
[2020-11-05] MEDS ORDERED: ACET-812 PO (13:44)
[2020-11-05] MEDS ORDERED: MELO-100 PO (13:44)
[2020-11-05 14:04] VITALS: BP 137/90
== END 2020-11-05 13:55 | disposition home or self-care (01) ==
LOC: ER 11:36
DX: M25.512 Pain in left shoulder (principal); G89.29 Other chronic pain; J44.9 Chronic obstructive pulmonary disease, unspecified; E11.9 Type 2 diabetes mellitus without complications; F12.90 Cannabis use, unspecified, uncomplicated; F15.90 Other stimulant use, unspecified, uncomplicated; Z98.51 Tubal ligation status; Z98.890 Other specified postprocedural states; Z87.891 Personal history of nicotine dependence; Z72.89 Other problems related to lifestyle; Z88.0 Allergy status to penicillin; Z91.040 Latex allergy status; Z88.1 Allergy status to other antibiotic agents; Z79.899 Other long term (current) drug therapy; Z91.041 Radiographic dye allergy status
CPT/HCPCS: 96372; 99283; J1885

== ENCOUNTER 2020-11-22 02:57 | Emergency (ER) | payer MEDICARE, MEDICAID ==
[~2020-11-22] VITALS: Ht 165.1 cm; Wt 145.4 kg
[~2020-11-22 02:57] MED LIST changes: +ACET-812 PO; +MELO-100 PO
[2020-11-22] MEDS ORDERED: morphine 10mg/ml inj. IM ONE (03:10)
--- NOTE | 2020-11-22 04:22 | NUR ---
6 ATTEMPTS THUS FAR TO PLACE PIV FOR MODERATE SEDATION UNSUCCESSFUL. DR. PARHAM AT BEDSIDE NOW TO EVALUATE FOR ACCESS. 18G PLACED W ULTRASOUND.
[2020-11-22] MEDS ORDERED: morphine 10mg/ml inj. IV ONE ×2 (04:30)
[2020-11-22] MEDS: propofol 10mg/ml 20ml vial IV ONE (04:39)
[2020-11-22] MEDS ORDERED: HYDR-3972 PO (04:54)
[2020-11-22 05:11] VITALS: BP 120/82
[2020-11-22] MEDS ORDERED: ondansetron/PF 4mg/2ml inj IV ONE (06:05)
--- NOTE | 2020-11-22 06:13 | NUR ---
pts sister here for discharge. Pts ring cut off by lead generation specialist. Pt assisted to get oob to wc with 1 person moderate assist. nausea once sat up . verbal for ashley received. Sling placed to r arm. Pt reports improvement in her pain to r shouder.
[2020-11-22] MEDS: ondansetron/PF 4mg/2ml inj IV ONE ×2 (06:25→06:32)
[2020-11-24] MEDS ORDERED: METF-950 PO (10:33)
[2020-11-24] MEDS ORDERED: MELO7.5T12 PO (10:34)
[2020-11-24] MEDS ORDERED: ACET-75 PO (10:34)
== END 2020-11-22 06:36 | disposition home or self-care (01) ==
LOC: ER 02:57
DX: S43.004A Unspecified dislocation of right shoulder joint, initial encounter (principal); M54.2 Cervicalgia; M25.511 Pain in right shoulder; I50.9 Heart failure, unspecified; J44.9 Chronic obstructive pulmonary disease, unspecified; E11.9 Type 2 diabetes mellitus without complications; F41.9 Anxiety disorder, unspecified; F32.9 Major depressive disorder, single episode, unspecified; F20.9 Schizophrenia, unspecified; F17.200 Nicotine dependence, unspecified, uncomplicated; F12.90 Cannabis use, unspecified, uncomplicated; F15.90 Other stimulant use, unspecified, uncomplicated; Z98.51 Tubal ligation status; Z72.89 Other problems related to lifestyle; Z88.0 Allergy status to penicillin; Z88.8 Allergy status to other drugs, medicaments and biological substances; Z91.040 Latex allergy status; Z79.899 Other long term (current) drug therapy; W19.XXXA Unspecified fall, initial encounter; Y93.89 Activity, other specified; Y92.89 Other specified places as the place of occurrence of the external cause; Y99.8 Other external cause status
CPT/HCPCS: 23650; 73020; 94799; 96372; 96374; 99152; 99285; J2270; J2405

== ENCOUNTER 2023-02-08 05:13 | Day surgery (SDC) | payer MEDICARE, MEDICAID ==
[2023-02-02 13:12] LABS: BASOPHILS # (AUTO) 0.1 X10'3 (0-0.2); BASOPHILS % (AUTO) 0.9 % (0-1); EOSINOPHILS # (AUTO) 0.3 X10'3 (0-0.9); EOSINOPHILS % (AUTO) 3.3 % (0-6); LYMPHOCYTES # (AUTO) 2.6 X10'3 (1.1-4.8); LYMPHOCYTES % (AUTO) 24.8 % (21-51); MEAN CORPUSCULAR HEMOGLOBIN 29.9 PG (27.0-31.0); MEAN CORPUSCULAR VOLUME 93.5 FL (78-98); MEAN PLATELET VOLUME 7.8 FL (7.4-10.4); MONOCYTES # (AUTO) 0.7 X10'3 (0-0.9); MONOCYTES % (AUTO) 6.9 % (2-12); NEUTROPHILS # (AUTO) 6.6 X10'3 (1.8-7.7); NEUTROPHILS % (AUTO) 64.1 % (42-75); PRE OP HEMATOCRIT 44.4 % (35.0-45.0); PRE OP HEMOGLOBIN 14.2 g/dL (12.0-16.0); PRE OP PLATELET COUNT 410 X10'3 (140-440); PRE OP WHITE BLOOD COUNT 10.3 10'3 (4.8-10.8); RED BLOOD COUNT 4.74 X10'6 (4.20-5.60); RED CELL DISTRIBUTION WIDTH 15.8 % (11.5-14.5)
[2023-02-02 13:35] LABS: ALBUMIN 3.4 G/DL (3.4-5.0); ALBUMIN/GLOBULIN RATIO 0.8 (1.1-1.5); ALKALINE PHOSPHATASE 116 IU/L (46-116); BLOOD UREA NITROGEN 22 MG/DL (7-18); CALCIUM 9.4 MG/DL (8.5-10.1); CHLORIDE 99 MMOL/L (99-107); PRE OP ALT 24 U/L (30-65); PRE OP ANION GAP 17 (8-16); PRE OP AST 12 U/L (10-37); PRE OP BILIRUB, TOTAL 0.3 MG/DL (0.0-1.0); PRE OP SODIUM 136 MMOL/L (135-145); TOTAL CARBON DIOXIDE 19.8 MMOL/L (24-32); TOTAL PROTEIN 7.5 G/DL (6.4-8.2); eGFR 57 ML/MIN
[2023-02-02 13:45] LABS: PRE OP GLUCOSE 240 MG/DL (70-104)
[~2023-02-08] VITALS: Ht 162.6 cm; Wt 122.0 kg
[2023-02-08] VITALS (8 sets, daily range): BP systolic 103–130; BP diastolic 53–70; PULSE 73–83; RESP 13–16; TEMP 98.1; O2SAT 92–96
[~2023-02-08 05:13] MED LIST changes: -ACET-812 PO; +ALBU18HF2; -ALBU18HF2 INH; +ATRIN PO; +CARV-50 PO; +DULA0.75 SQ; +FURO40TA4 PO; +GLIM2TAB6 PO; -HYDR-3965 PO; +HYDR-3972 PO; -LEVO175T7 PO; +LEVO200T8 PO; -MELO-100 PO; -METF-436 PO; +METF-438 PO; -RISP0.253 PO; +RISP2TAB85 PO; -TIOT4MIS5 PO; +ringers solution, lacted 1,000 ML IV SCH
[2023-02-08] MEDS ORDERED: albuterol 2.5 MG/3 ML nebule NEB ONE (05:30)
[2023-02-08] MEDS ORDERED: ceFAZolin inj. 3,000 MG in normal saline 100ml IV soln 100 ML IV ONE (05:30)
[2023-02-08] MEDS ORDERED: famotidine 20mg tablet PO ONE (05:30)
[2023-02-08] MEDS ORDERED: DOCUMENT DATE & TIME OF BETA-BLOCKER PO ONE (05:30)
[2023-02-08] MEDS ORDERED: BUPIVAcaine/PF 2.5mg/ml (0.25%) 10ml vial ONE (06:37)
[2023-02-08] MEDS ORDERED: LIDOcaine 1% (10mg/ml) 2ml vial ONE (06:50)
[2023-02-08] MEDS ORDERED: BUPIVAcaine/PF 2.5 mg/ml (0.25%) 30ml vial IJ ONE (07:00)
[2023-02-08] MEDS ORDERED: ringers solution, lacted 1,000 ML IV SCH (07:25)
[2023-02-08] MEDS ORDERED: morphine 2 MG/ML inj. syringe IV PRN (07:25)
[2023-02-08] MEDS ORDERED: meperidine/PF 25mg/ml syringe IV PRN ×2 (07:25)
[2023-02-08] MEDS ORDERED: proCHLORperazine 10 MG/2 ml inj IV PRN (07:25)
[2023-02-08] MEDS ORDERED: ondansetron/PF 4mg/2ml inj IV PRN (07:25)
[2023-02-08] MEDS ORDERED: LIDOcaine 2% (20mg/ml) 5ml vial ONE (07:30)
[2023-02-08] MEDS ORDERED: propofol 10mg/ml 20ml vial IV ONE (07:30)
[2023-02-08] MEDS ORDERED: ketamine 50mg/5ml syringe ONE (07:34)
[2023-02-08] MEDS ORDERED: fentaNYL/PF 50MCG/1 ML 2ML syringe ONE ×2 (07:35→07:53)
[2023-02-08] MEDS ORDERED: midazolam 1 mg/ML 2ml injection ONE (07:35)
[2023-02-08] MEDS ORDERED: BUPIVAcaine/PF 2.5 mg/ml (0.25%) 30ml vial ONE (07:47)
--- NOTE | 2023-02-08 08:10 | NUR ---
PATIENT A&OX4 V/S WNL, NEUROVASCULAR CHECKS INTACT, PIV TO R. WRIST 20G, SCD ON, ICE AND ELEVATION TO LEFT WRIST CDI DRESSING. DENIES PAIN IN LEFT WRIST HOWEVER PATIENT IS HAVING CHRONIC PAIN TO LEFT SHOULDER, MEDICATION GIVEN.
--- NOTE | 2023-02-08 08:10 | NUR ---
DOCUMENTATION START OF PACU AT 0810, NOT 0710 Addendum: 02/08/23 at 0846 by Ling Lui RN Amended: Links added.
[2023-02-08] MEDS: meperidine/PF 25mg/ml syringe IV PRN ×2 (08:19→08:24)
[2023-02-08] MEDS ORDERED: HYDROcodone/acetaminophen 10/325mg tab PO PRN (08:25)
[2023-02-08] MEDS: morphine 4 MG/ML inj SYRINge IV PRN ×2 (08:35→08:53)
[2023-02-08] MEDS ORDERED: HYDROcodone/acetaminophen 10/325mg tab PO ONE (08:50)
--- NOTE | 2023-02-08 09:30 | NUR ---
PATIENT MEETS DISCHARGE CRITERIA FROM [facility]. REVIEWED DISCHARGE PAPERWORK WITH PATIENT AND Antonio MULLEN. PATIENT DISCHARGED HOME IN CARE OF Antonio
== END 2023-02-08 09:30 | disposition home or self-care (01) ==
LOC: PAS 05:13
PROVIDERS: ATTEND Orthopaedic Surgery
DX: G56.02 Carpal tunnel syndrome, left upper limb (principal); G47.33 Obstructive sleep apnea (adult) (pediatric); J44.9 Chronic obstructive pulmonary disease, unspecified; I10 Essential (primary) hypertension; E66.9 Obesity, unspecified; Z68.42 Body mass index [BMI] 45.0-49.9, adult; E11.51 Type 2 diabetes mellitus with diabetic peripheral angiopathy without gangrene; E11.3213 Type 2 diabetes mellitus with mild nonproliferative diabetic retinopathy with macular edema, bilateral; F43.10 Post-traumatic stress disorder, unspecified; M19.012 Primary osteoarthritis, left shoulder; M19.011 Primary osteoarthritis, right shoulder; Z85.828 Personal history of other malignant neoplasm of skin; Z87.891 Personal history of nicotine dependence; F12.90 Cannabis use, unspecified, uncomplicated; Z72.89 Other problems related to lifestyle; Z98.890 Other specified postprocedural states; Z90.710 Acquired absence of both cervix and uterus; Z98.51 Tubal ligation status; Z91.040 Latex allergy status; Z91.041 Radiographic dye allergy status; Z82.49 Family history of ischemic heart disease and other diseases of the circulatory system; Z83.3 Family history of diabetes mellitus; Z80.1 Family history of malignant neoplasm of trachea, bronchus and lung
CPT/HCPCS: 36415; 64721; 80053; 82948; 85025; A6222; J0690; J2175; J2250; J2270; J2704; J3010; J3490; J7030; J7120; Z7506; Z7512; A4215; A6449; A7000